=== PATIENT | male | born 1965 | race Hispanic/Latino ===

== ENCOUNTER 2018-03-19 19:37 | Emergency (ER) | payer OTHER ==
[2018-03-19 20:01] VITALS: BMI 49.5
[2018-03-19 20:11] VITALS: TEMP 98.3
--- NOTE | 2018-03-19 20:53 | ED PDOC ---
Arrival/HPI - General Chief Complaint: Abdominal Pain Time Seen by Provider: 03/19/18 20:02 Historian: Patient - History of Present Illness Narrative History of Present Illness (Text): 03/19/18 20:50 Edinson Herrera is a 53 year old male, whose past medical history includes gastric bypass in 2000, GERD, BPH, and kidney stents, who presents to the Emergency department complaining of abdominal pain. Patient states he has been e xperiencing upper abdominal discomfort for the past 5 days. Patient notes he had eaten a snack cake and drank Gatorade when symptoms began. Patient denies any fever, chills, chest pain, shortness of breath, nausea, vomiting, headache, dizziness, or any other complaints. Symptom Onset: Gradual Symptom Course: Unchanged Activities at Onset: Light Context: Home Past Medical History - Provider Review Nursing Documentation Reviewed: Yes - Cardiac Hx Cardiac Disorders: No - Pulmonary Hx Respiratory Disorders: No - Neurological Hx Neurological Disorder: No - HEENT Hx HEENT Disorder: No - Renal Hx Renal Disorder: No - Endocrine/Metabolic Hx Endocrine Disorders: No - Hematological/Oncological Hx Blood Disorders: No - Integumentary Hx Dermatological Disorder: No - Musculoskeletal/Rheumatological Hx Musculoskeletal Disorders: No - Gastrointestinal Hx Gastrointestinal Disorders: Yes Hx Gastroesophageal Reflux: Yes - Genitourinary/Gynecological Hx Genitourinary Disorders: No - Psychiatric Hx Psychophysiologic Disorder: No Hx Substance Use: No - Surgical History Hx Gastric Bypass Surgery: Yes (2000) Other/Comment: right ankle surgery 1999. 2 kidney stents - Anesthesia Hx Anesthesia: Yes Hx Anesthesia Reactions: No Hx Malignant Hyperthermia: No Family/Social History - Physician Review Nursing Documentation Reviewed: Yes Family/Social History: Unknown Family HX Smoking Status: Never Smoked Hx Alcohol Use: Yes Frequency of alcohol use: Daily Hx Substance Use: No Allergies/Home Meds Allergies/Adverse Reactions: Allergies acetaminophen [From Percocet] Allergy (Verified 03/19/18 20:02) RASH oxycodone [From Percocet] Allergy (Verified 03/19/18 20:02) RASH Home Medications: Home Meds Medication Instructions Recorded Confirmed Alfuzosin HCl [Alfuzosin HCl ER] 10 mg PO DAILY 03/19/18 03/19/18 Cholecalciferol (Vitamin D3) 5,000 iu PO DAILY 03/19/18 03/19/18 [Vitamin D3] Omeprazole 40 mg PO DAILY 03/19/18 03/19/18 Review of Systems - Physician Review All systems were reviewed & negative as marked: Yes - Review of Systems Constitutional: Normal. absent: Fevers Eyes: Normal ENT: Normal Respiratory: Normal Gastrointestinal: Abdominal Pain. absent: Diarrhea, Vomiting Genitourinary Male: Normal. absent: Dysuria, Frequency, Hematuria, Urinary Output Changes Musculoskeletal: Normal. absent: Back Pain, Neck Pain Skin: Normal. absent: Rash Neurological: Normal. absent: Headache, Dizziness Endocrine: Normal Hemo/Lymphatic: Normal Psychiatric: Normal Physical Exam Vital Signs Reviewed: Yes Vital Signs Temp Pulse Resp Pulse Ox 03/19/18 20:09 98.3 F 76 16 96 Temperature: Afebrile Blood Pressure: Normal Pulse: Regular Respiratory Rate: Normal Appearance: Positive for: Well-Appearing, Non-Toxic, Comfortable Pain Distress: None Mental Status: Positive for: Alert and Oriented X 3 - Systems Exam Head: Present: Atraumatic, Normocephalic Pupils: Present: PERRL Extroacular Muscles: Present: EOMI Conjunctiva: Present: Normal Mouth: Present: Moist Mucous Membranes Neck: Present: Normal Range of Motion Respiratory/Chest: Present: Clear to Auscultation, Good Air Exchange. No: Respiratory Distress, Accessory Muscle Use Cardiovascular: Present: Regular Rate and Rhythm, Normal S1, S2. No: Murmurs Abdomen: Present: Tenderness (right upper abdomen). No: Distention, Peritoneal Signs Back: Present: Normal Inspection Upper Extremity: Present: Normal Inspection. No: Cyanosis, Edema Lower Extremity: Present: Normal Inspection. No: Edema Neurological: Present: GCS=15, CN II-XII Intact, Speech Normal Skin: Present: Warm, Dry, Normal Color. No: Rashes Psychiatric: Present: Alert, Oriented x 3, Normal Insight, Normal Concentration Medical Decision Making ED Course and Treatment: 03/19/18 20:50 Impression: 53 year old male complaining of upper abdominal discomfort x 5 days. Plan: -- CT Abdomen and Pelvis with IV contrast -- EKG -- CXR -- Labs, cardiac enzymes, lipase -- IV fluids -- Protonix -- Toradol -- Reassess and disposition Progress Notes: Reviewed EKG, NSR at [address]-segment elevations or depressions, no T-wave inversions, normal intervals. 03/20/18 00:49 Chest X-ray reviewed, shows no acute processes. 03/20/18 01:09 CT Abdomen and Pelvis reviewed, shows: Chest: The visualized lung bases are clear. There is a small hiatal hernia. Gastric bypass surgical changes are noted. Abdomen: The liver, spleen, pancreas, and adrenal glands are unremarkable. There is severe left-sidedhydronephrosis and hydroureter. There is narrowing of the caliber of the distal ureter. Dense material is seen in the urinary bladder adjacent to the left ureterovesical junction. The gallbladder is distended. A 2.4 cm gallstone is seen in the fundus of the gallbladder. There is no evidence of biliary ductal dilatation. The aorta is within normal limits. There is no evidence of abdominal lymphadenopathy or ascites. There is a small periumbilical hernia containing only omental fat. Pelvis: The bowel is unremarkable, with no obstructive or inflammatory changes. The urinary bladder is within normal limits. The other pelvic structures appear grossly intact. There is no evidence of pelvic lymphadenopathy or ascites. Bones: There are no suspicious osseous abnormalities seen. Impression: 1. Severe left-sided hydronephrosis and hydroureter. There is narrowing of the distal left ureter, but no discrete mass or stone is seen at this time. Linear density material is seen in the urinary bladder adjacent to the ureterovesical junction. This is nonspecific. Ultrasound of the kidneys and urinary bladder may be helpful for further evaluation. The right renal collecting system is unremarkable. 2. Cholelithiasis with distended gallbladder. No evidence of biliary ductal dilatation or pericholecystic free fluid. If there is further clinical concern, ultrasound could be performed. 3. No obstructive or inflammatory bowel changes. 4. Small hiatal hernia. 03/20/18 01:14 The patient declines to have further medical evaluation and treatment and wishes to leave the Emergency Department. This action is against my medical advice to the patient, and with informed refusal. The patient was told that evaluation and treatment are necessary and a full explanation of the rationale was given. The risks of leaving were explained to the patient and include, but are not limited to, worsening of known or currently unknown conditions, permanent disability and from undiagnosed or untreated conditions The patient has the capacity to make this informed decision and understands the clinical situation and my explanation of the risks of leaving. The patient voluntarily accepts these risks, and a signed AMA form documenting our conversation was obtained. The patient was given the opportunity to ask questions and reconsider. The patient was encouraged to return to the Emergency Department at any time for further care. - Lab Interpretations I have reviewed the lab results: Yes - RAD Interpretation [employer] Cook: ED Physician - EKG Interpretation Interpreted by ED Physician: Yes Type: 12 lead EKG - Scribe Statement The provider has reviewed the documentation as recorded by the Samraibyrn Neal Provider Scribe Attestation: All medical record entries made by the Scribe were at my direction and personally dictated by me. I have reviewed the chart and agree that the record accurately reflects my personal performance of the history, physical exam, medical decision making, and the department course for this patient. I have also personally directed, reviewed, and agree with the discharge instructions and disposition. Disposition/Present on Arrival - Present on Arrival Any Indicators Present on Arrival: No History of DVT/PE: No History of Uncontrolled Diabetes: No Urinary Catheter: No History of Decub. Ulcer: No History Surgical Site Infection Following: None - Disposition Have Diagnosis and Disposition been Completed?: Yes Diagnosis: Biliary colic, Cholelithiasis, Elevated transaminase level Disposition: AGAINST MEDICAL ADVICE Disposition Time: 01:50 Condition: STABLE Referrals: PCP,NO [Primary Care Provider] - Follow up with primary Forms: [employer] Feed (Guamanian)
[2018-03-19] MEDS ORDERED: Sodium Chloride 0.9% 1,000 ML IV STA (20:56)
[2018-03-19 22:04] VITALS: BP 113/71; PULSE 78; RESP 17; O2SAT 97
[2018-03-19 22:09] LABS: HEMOGLOBIN 13.8 g/dL (14.0-18.0); MEAN CELL VOLUME 96.4 fl (80.0-105.0); MEAN CORPUSCULAR HEMOGLOBIN 30.9 pg (25.0-35.0); MEAN CORPUSCULAR HGB CONC 32.1 g/dl (31.0-37.0); MEAN PLATELET VOLUME 8.6 fl (7.0-11.0); RBC 4.46 10^6/uL (3.5-6.1); RED CELL DISTRIBUTION WIDTH 16.8 % (11.5-14.5); WHITE BLOOD COUNT 6.2 10^3/uL (4.5-11.0)
[2018-03-19 22:12] LABS: ALB/GLOB RATIO 0.9 (1.1-1.8); ALBUMIN 3.9 g/dL (3.0-4.8); ALT/SGPT 123 U/L (7-56); AST/SGOT 149 U/L (17-59); BLOOD UREA NITROGEN 9 mg/dL (7-21); CALCIUM 9.3 mg/dL (8.4-10.5); GFR NON-AFRICAN AMERICAN > 60; LIPASE 120 U/L (23-300)
[2018-03-19 22:23] LABS: TROPONIN I < 0.01 ng/mL
[2018-03-19] MEDS ORDERED: Iohexol 350 MG/100 ML VIAL ONE (23:04)
--- NOTE | 2018-03-20 05:53 | RAD ---
Date of service: 03/19/2018 HISTORY: abdominal pain COMPARISON: No prior. FINDINGS: LUNGS: The lungs are well inflated and clear. PLEURA: No pleural effusions or pneumothorax. CARDIOVASCULAR: The heart is normal in size. No aortic atherosclerotic calcification present. OSSEOUS STRUCTURES: Within normal limits for the patient's age. VISUALIZED UPPER ABDOMEN: Normal. OTHER FINDINGS: None. IMPRESSION: No active pulmonary disease.
--- NOTE | 2018-03-20 09:07 | CT ---
Date of service: 03/19/2018 PROCEDURE: CT Abdomen and Pelvis with contrast HISTORY: Abdominal pain COMPARISON: None. TECHNIQUE: CT scan of the abdomen and pelvis was performed after administration of intravenous contrast. Oral contrast was not administered. Coronal and sagittal reformatted images were obtained. Contrast dose: 100 mL Omnipaque 350 Radiation dose: Total exam DLP = 1735.45 mGy-cm. This CT exam was performed using one or more of the following dose reduction techniques: Automated exposure control, adjustment of the mA and/or kV according to patient size, and/or use of iterative reconstruction technique. FINDINGS: LOWER THORAX: There is dependent atelectasis in the lung bases. LIVER: Enlarged with homogeneous enhancement. There is mild periportal edema. No gross lesion or ductal dilatation. GALLBLADDER AND BILE DUCTS: The gallbladder is distended. There are multiple gallstones in the fundus. No wall thickening or pericholecystic fluid. PANCREAS: Normal in size with homogeneous enhancement. No gross lesion or ductal dilatation. SPLEEN: Mild splenomegaly. Normal enhancement. ADRENALS: No discrete nodule. KIDNEYS AND URETERS: The right kidney is normal in size with homogeneous enhancement. There is mild fullness in the right collecting system, an extrarenal pelvis and mild dilatation of the proximal ureteral. There is mild enlargement of the left kidney, severe left hydronephrosis, severe diffuse dilatation of the left ureteral with segmental narrowing of the distal ureter. VASCULATURE: No aortic aneurysm. BOWEL: Unremarkable. No obstruction. No gross mural thickening. APPENDIX: Normal appendix. PERITONEUM: Unremarkable. No free fluid. No free air. LYMPH NODES: Unremarkable. No enlarged lymph nodes. BLADDER: Partially distended. There is moderate circumferential mural thickening of the urinary bladder wall. REPRODUCTIVE: Unremarkable. BONES: No acute fracture. Within normal limits for the patient's age. OTHER FINDINGS: None. IMPRESSION: 1. Severe left hydroureteronephrosis with segmental narrowing of the left distal ureter suspicious for a stricture. 2. Mild hepatosplenomegaly. Mild periportal edema is nonspecific. 3. Distended gallbladder and cholelithiasis. 4. Apparent moderate mural thickening of the urinary bladder wall is nonspecific and could be related to underdistention however cystitis cannot be excluded.
--- NOTE | 2018-03-20 10:38 | CARD ---
APPROVED REPORT Date of service: 03/19/2018 EKG Measurement Heart [id number] ME [id number] [id number] <Conclusion> Normal sinus rhythm Normal ECG
== END 2018-03-20 01:41 | disposition left against medical advice (07) ==
LOC: ED 19:37
DX: K80.70 Calculus of gallbladder and bile duct without cholecystitis without obstruction (principal); R74.0 Nonspecific elevation of levels of transaminase and lactic acid dehydrogenase [LDH]; K21.9 Gastro-esophageal reflux disease without esophagitis; N40.0 Benign prostatic hyperplasia without lower urinary tract symptoms; Z98.84 Bariatric surgery status
CPT/HCPCS: 71045; 74177; 80053; 82550; 83615; 83690; 84484; 85027; 93005; 96361; 96374; 96375; 99283; C9113; J1885; J7030; Q9967

== ENCOUNTER 2018-03-21 17:00 | Inpatient (IN) | payer OTHER ==
[2018-03-21 17:01] VITALS: BMI 49.5
[2018-03-21 18:35] LABS: BASO # 0.02 K/mm3 (0.0-2.0); BASO % 0.5 % (0.0-3.0); EOS # 0.3 (0.0-0.7); EOS % 5.9 % (1.5-5.0); GRAN # 2.79 (1.4-6.5); GRAN % 63.1 % (50.0-68.0); HEMOGLOBIN 13.2 g/dL (14.0-18.0); LYMPH # 0.9 (1.2-3.4); MEAN CELL VOLUME 95.6 fl (80.0-105.0); MEAN CORPUSCULAR HEMOGLOBIN 30.6 pg (25.0-35.0); MEAN PLATELET VOLUME 8.6 fl (7.0-11.0); MONO # 0.4 (0.1-0.6); MONO % 9.5 % (1.0-6.0); RBC 4.32 10^6/uL (3.5-6.1); RED CELL DISTRIBUTION WIDTH 16.5 % (11.5-14.5); WHITE BLOOD COUNT 4.4 10^3/uL (4.5-11.0)
--- NOTE | 2018-03-21 18:38 | ED PDOC ---
Arrival/HPI - History of Present Illness Narrative History of Present Illness (Text): 03/21/18 18:34 Edinson Herrera is a 53 year old morbidly obese male, whose past medical history includes gastric bypass in 2000, GERD, BPH, and kidney stents, who presents to the Emergency department complaining of abdominal pain. Patient states he has been experiencing upper abdominal discomfort for the past 7 days. Pt was seen here on 03/19 for the same complaint, found to have cholelithiasis with elevated LFTs but signed out AMA and denied admission. Pt is here today at the advisement of his family for continued RUQ discomfort, although pain is better. Denies fever, chills, chest pain, shortness of breath, nausea, vomiting, headache, dizziness, urinary symptoms. <Emely Chen - Last Filed: 03/22/18 03:03> <Sujata Muse - Last Filed: 03/24/18 07:32> - General Chief Complaint: GI Problem Time Seen by Provider: 03/21/18 17:10 Past Medical History - Provider Review Nursing Documentation Reviewed: Yes - Cardiac Hx Cardiac Disorders: No - Pulmonary Hx Respiratory Disorders: No - Neurological Hx Neurological Disorder: No - HEENT Hx HEENT Disorder: No - Renal Hx Renal Disorder: No - Endocrine/Metabolic Hx Endocrine Disorders: No - Hematological/Oncological Hx Blood Disorders: No - Integumentary Hx Dermatological Disorder: No - Musculoskeletal/Rheumatological Hx Musculoskeletal Disorders: No - Gastrointestinal Hx Gastrointestinal Disorders: Yes Hx Gastroesophageal Reflux: Yes - Genitourinary/Gynecological Hx Genitourinary Disorders: No - Psychiatric Hx Psychophysiologic Disorder: No Hx Substance Use: No - Surgical History Hx Gastric Bypass Surgery: Yes (2000) Other/Comment: right ankle surgery 1999. 2 kidney stents - Anesthesia Hx Anesthesia: Yes Hx Anesthesia Reactions: No Hx Malignant Hyperthermia: No <Emely Chen - Last Filed: 03/22/18 03:03> Family/Social History - Physician Review Nursing Documentation Reviewed: Yes Family/Social History: No Known Family HX Smoking Status: Never Smoked Hx Alcohol Use: Yes Hx Substance Use: No <Emely Chen - Last Filed: 03/22/18 03:03> Allergies/Home Meds <Emely Chen - Last Filed: 03/22/18 03:03> <Sujata Muse - Last Filed: 03/24/18 07:32> Allergies/Adverse Reactions: Allergies acetaminophen [From Percocet] Allergy (Verified 03/21/18 17:09) RASH oxycodone [From Percocet] Allergy (Verified 03/21/18 17:09) RASH Home Medications: Home Meds Medication Instructions Recorded Confirmed RX: Alfuzosin HCl [Alfuzosin HCl 10 mg PO DAILY 03/19/18 03/21/18 ER] RX: Cholecalciferol (Vitamin D3) 5,000 iu PO DAILY 03/19/18 03/21/18 [Vitamin D3] RX: Omeprazole 40 mg PO DAILY 03/19/18 03/21/18 Review of Systems - Physician Review All systems were reviewed & negative as marked: Yes - Review of Systems Constitutional: Normal. absent: Fevers Eyes: Normal. absent: Vision Changes ENT: Normal Respiratory: Normal. absent: SOB, Cough Cardiovascular: Normal. absent: Chest Pain, Syncope Gastrointestinal: Abdominal Pain (RUQ). absent: Stool Changes, Nausea, Vomiting, Appetite Changes Genitourinary Male: Normal. absent: Dysuria, Frequency Musculoskeletal: Normal. absent: Back Pain, Neck Pain Skin: Normal. absent: Rash, Cellulitis Neurological: Normal. absent: Headache, Dizziness Endocrine: Normal Hemo/Lymphatic: Normal Psychiatric: Normal <Emely Chen - Last Filed: 03/22/18 03:03> Physical Exam Vital Signs Temp Pulse Resp BP Pulse Ox 03/21/18 17:07 98.7 F 80 18 137/87 99 Temperature: Afebrile Blood Pressure: Normal Pulse: Regular Respiratory Rate: Normal Appearance: Positive for: Well-Appearing, Non-Toxic, Comfortable Pain Distress: None Mental Status: Positive for: Alert and Oriented X 3 - Systems Exam Head: Present: Atraumatic, Normocephalic Pupils: Present: PERRL Extroacular Muscles: Present: EOMI Conjunctiva: Present: Normal Mouth: Present: Moist Mucous Membranes Neck: Present: Normal Range of Motion Respiratory/Chest: Present: Clear to Auscultation, Good Air Exchange. No: Respiratory Distress, Accessory Muscle Use Cardiovascular: Present: Regular Rate and Rhythm, Normal S1, S2. No: Murmurs Abdomen: No: Tenderness, Distention, Peritoneal Signs Back: Present: Normal Inspection Upper Extremity: Present: Normal Inspection. No: Cyanosis, Edema Lower Extremity: Present: Normal Inspection. No: Edema Neurological: Present: GCS=15, CN II-XII Intact, Speech Normal Skin: Present: Warm, Dry, Normal Color. No: Rashes Psychiatric: Present: Alert, Oriented x 3, Normal Insight, Normal Concentration <Emely Chen - Last Filed: 03/22/18 03:03> Vital Signs Temp Pulse Resp BP Pulse Ox 03/22/18 00:10 98.6 F 88 17 165/88 H 96 03/22/18 00:00 98.3 F 84 20 119/78 97 03/21/18 21:06 88 16 137/63 97 03/21/18 17:07 98.7 F 80 18 137/87 99 <Sujata Muse - Last Filed: 03/24/18 07:32> Medical Decision Making ED Course and Treatment: 03/22/18 17:15 Initial Plan: * CBC, CMP, Lipase * Gallbladder US * IVF * Consult surgery Pt offered pain medication, he refuses, states pain is not severe. 22:10 Gallbladder US significant for cholelithiasis 22:15 Spoke with surgery who states patient should be admitted to medicine secondary to elevated LFTs. Will call medicine. 22:[address] Hannah who accepts patient for inpatient admission to med-surg with surgery consult for symptomatic cholethiasis with elevated LFTs. Plan of care discussed with pt who agrees and understands. - Lab Interpretations Narrative Lab Interpretation (Text): 03/22/18 03:18 03/21/18 03/21/18 03/21/18 18:00 18:00 18:00 WBC 4.4 L D RBC 4.32 Hgb 13.2 L Hct 41.3 L MCV 95.6 MCH 30.6 MCHC 32.0 RDW 16.5 H Plt Count 279 MPV 8.6 Gran % 63.1 Lymph % (Auto) 21.0 L Pender % (Auto) 9.5 H Eos % (Auto) 5.9 H Baso % (Auto) 0.5 Gran # 2.79 Lymph # (Auto) 0.9 L Pender # (Auto) 0.4 Eos # (Auto) 0.3 Baso # (Auto) 0.02 PT 11.8 INR 1.03 APTT 33.9 Sodium 141 Potassium 4.0 Chloride 107 Carbon Dioxide 25 Anion Gap 14 BUN 5 L Creatinine 0.8 Est GFR ( Amer) > 60 Est GFR (Non-Af Amer) > 60 Random Glucose 92 Calcium 8.9 Total Bilirubin 2.3 H AST 175 H ALT 126 H Alkaline Phosphatase 330 H Troponin I < 0.01 Total Protein 7.8 Albumin 3.7 Globulin 4.1 Albumin/Globulin Ratio 0.9 L Lipase 147 I have reviewed the lab results: Yes - RAD Interpretation Narrative RAD Interpretations (Text): 03/21/18 22:24 Gallbladder US History RUQ pain. Comparison None. Technique Sonographic evaluation of the right upper quadrant of the abdomen. Findings Liver Measures 19.8 cm in length. Normal echogenicity of the liver parenchyma. No mass. No intrahepatic bile duct dilatation. Gallbladder The gallbladder stones are seen. The gallbladder wall is not thickened measuring 0.22 cm and there is no pericholecystic fluid. Negative sonographic Castaneda's si gn. There is no abdominal ascites. Common bile duct Measures 7.7 mm. No stones. No dilatation. Pancreas Unremarkable as visualized. No mass. No ductal dilatation. Right kidney Measures 12.8 x 5.5 x 7.2 cm in length. Mild hydronephrosis. Normal echogenicity. No calculus or mass. Aorta Not visualized due to excessive bowl gas. IVC Unremarkable. Impression 1. Cholelithiasis. 2. No acute pathology. Electronically signed on Mar 21, 2018 10:06:04 PM EDT by: Brian Fernández M.D., RAMIREZ Certified By [facility] & [facility] Fellowship Trained MRI and CT Specialist 03/22/18 03:19 Radiology Orders: 03/21/18 17:13 GALLBLADDER & COMMON DUCT [US] Stat [employer] Back Feeder: Radiologist <Emely Chen - Last Filed: 03/22/18 03:03> - Lab Interpretations Lab Results: 03/21/18 18:00 03/21/18 18:00 Lab Results 03/21/18 18:00: PT 11.8, INR 1.03, APTT 33.9 03/21/18 18:00: Sodium 141, Potassium 4.0, Chloride 107, Carbon Dioxide 25, Anion Gap 14, BUN 5 L, Creatinine 0.8, Est GFR ( Amer) > 60, Est GFR (Non-Af Amer) > 60, Random Glucose 92, Calcium 8.9, Total Bilirubin 2.3 H, AST 175 H, ALT 126 H, Alkaline Phosphatase 330 H, Troponin I < 0.01, Total Protein 7.8, Albumin 3.7, Globulin 4.1, Albumin/Globulin Ratio 0.9 L, Lipase 147 03/21/18 18:00: WBC 4.4 L D, RBC 4.32, Hgb 13.2 L, Hct 41.3 L, MCV 95.6, MCH 30.6, MCHC 32.0, RDW 16.5 H, Plt Count 279, MPV 8.6, Gran % 63.1, Lymph % (Auto) 21.0 L, Pender % (Auto) 9.5 H, Eos % (Auto) 5.9 H, Baso % (Auto) 0.5, Gran # 2.79, Lymph # (Auto) 0.9 L, Pender # (Auto) 0.4, Eos # (Auto) 0.3, Baso # (Auto) 0.02 - RAD Interpretation Radiology Orders: 03/21/18 17:13 GALLBLADDER & COMMON DUCT [US] Stat - Medication Orders Current Medication Orders: Folic Acid (Folic Acid) 1 mg PO DAILY [facility] Last Admin: 03/23/18 11:10 Dose: 1 mg Lactated Ringer's (Lactated Ringer's) 1,000 mls @ 150 mls/hr IV .Q6H40M KAREN Last Admin: 03/24/18 02:59 Dose: Not Given Non-Admin Reason: bag running Ceftriaxone Sodium (Rocephin 1 Gram Ivpb) 1 gm in 100 mls @ 100 mls/hr IVPB DAILY [facility]; Protocol Ketorolac Tromethamine (Toradol) 30 mg IVP Q6 PRN PRN Reason: Pain, severe (8-10) Last Admin: 03/23/18 22:13 Dose: 30 mg MAR Pain Assessment Document 03/23/18 22:13 BN (Rec: 03/23/18 22:13 BN [facility] [id number] Pain Reassessment Is this a pain reassessment? No Sleep Is patient sleeping during reassessment? No Presence of Pain Presence of Pain Yes Pain Scale Used Protocol: PSCALES Pain Scale Used Numeric Location Pain Location Body Site Abdomen Description Description Intermittent Intensity of Pain at present 6 Pain Behavior Restlessness IVP Administration Document 03/23/18 22:13 BN (Rec: 03/23/18 22:13 BN [facility] [id number]) Charges for Administration # of IVP Administrations 1 Re-Assess: MAR Pain Assessment Document 03/23/18 23:13 BN (Rec: 03/24/18 02:59 BN [id number]) Pain Reassessment Is this a pain reassessment? Yes Sleep Is patient sleeping during reassessment? Yes Lorazepam (Ativan) 1 mg IVP Q6H PRN; Protocol PRN Reason: Seizure activity Multivitamins/Minerals (Therapeutic-M Tab) 1 tab PO 0800 [facility] Last Admin: 03/23/18 11:10 Dose: 1 tab Ondansetron HCl (Zofran Inj) 4 mg IVP Q6H PRN PRN Reason: Nausea/Vomiting Pantoprazole Sodium (Protonix Ec Tab) 40 mg PO 0600 [facility] Last Admin: 03/24/18 05:51 Dose: 40 mg Tamsulosin HCl (Flomax) 0.4 mg PO DAILY KAREN Thiamine HCl (Vitamin B1 Tab) 50 mg PO DAILY [facility] Last Admin: 03/23/18 12:10 Dose: 50 mg Discontinued Medications Diphenhydramine HCl (Benadryl) 25 mg IVP STAT STA Stop: 03/22/18 01:33 Last Admin: 03/22/18 02:06 Dose: 25 mg IVP Administration Document 03/22/18 02:06 [facility] (Rec: 03/22/18 02:06 [facility] [employer]) Charges for Administration # of IVP Administrations 1 Multivitamins/Vitamin C 10 ml/Thiamine HCl 100 mg/ Folic Acid 1 mg/ Sodium Chloride 1,011.2 mls @ 100 mls/hr IV .Q10H7M ONE Stop: 03/22/18 09:56 Last Admin: 03/22/18 02:53 Dose: 100 mls/hr eMAR Start Stop Document 03/22/18 02:53 [facility] (Rec: 03/22/18 02:53 [facility] [employer]) Intravenous Solution Start Date 03/22/18 Start Time 02:53 Lorazepam (Ativan) 1 mg IVP Q6H PRN; Protocol PRN Reason: Agitation <Sujata Muse - Last Filed: 03/24/18 07:32> - PA / SAW BOSS / Resident Statement MD/DO has reviewed & agrees with the documentation as recorded. <Sujata Muse - Last Filed: 03/24/18 07:32> Disposition/Present on Arrival - Present on Arrival Any Indicators Present on Arrival: No History of DVT/PE: No History of Uncontrolled Diabetes: No Urinary Catheter: No History of Decub. Ulcer: No History Surgical Site Infection Following: None - Disposition Have Diagnosis and Disposition been Completed?: Yes Disposition Time: 22:00 Patient Plan: Admission <Emely Chen - Last Filed: 03/22/18 03:03> <Sujata Muse - Last Filed: 03/24/18 07:32> - Disposition Diagnosis: Cholelithiasis, Elevated LFTs Disposition: HOSPITALIZED Patient Problems: Current Active Problems Problem Status Onset Cholelithiasis Acute Dilated bile duct Acute Elevated LFTs Acute Total bilirubin, elevated Acute Condition: STABLE
[2018-03-21 18:40] LABS: INR 1.03; PARTIAL THROMBOPLASTIN TIME 33.9 Seconds (25.1-36.5); PROTHROMBIN TIME 11.8 SECONDS (9.4-12.5)
[2018-03-21 18:50] LABS: ALB/GLOB RATIO 0.9 (1.1-1.8); ALBUMIN 3.7 g/dL (3.0-4.8); ALT/SGPT 126 U/L (7-56); AST/SGOT 175 U/L (17-59); BLOOD UREA NITROGEN 5 mg/dL (7-21); CALCIUM 8.9 mg/dL (8.4-10.5); GFR NON-AFRICAN AMERICAN > 60; LIPASE 147 U/L (23-300)
[2018-03-21 18:54] LABS: TROPONIN I < 0.01 ng/mL
--- NOTE | 2018-03-21 22:54 | CP.PCM.CON ---
History of Present Illness - History of Present Illness History of Present Illness: Surgery: Reason for consult: cholelithiasis CC: RUQ abdominal pain HPI: Patient is a 53 y/o male w/ pmhx of morbid obesity s/p gastric bypass surgery in 2000 w/ approximately 300lb weight loss since presents complaining of acute onset RUQ abdominal pain that started a couple of days ago. He states the pain was sharp in nature and localized to the RUQ. The pain started after eating a snack cake. He reports associated "gas discomfort" in which he tried to self induce vomiting to relieve the symptoms. He denies having similar pain in the past. He denies f/c chest pain or shortness of breath. He reports normal bowel function and flatus. He denies having EGD or colonoscopy in the past. He does report chronic reflux type symptoms however well controlled on OTC medication. Since the onset of pain, he reports brief resolution of symptoms. He does state he was seen in the ER two days ago for the pain and was told his liver enzymes were elevated and recommended admission for further evaluation however patient had social obligations and he left against medical advice. PMH: morbid obesity, HTN and DM-resolved since gastric bypass surgery, gastritis, cholelithiasis, BPH, nephrolithiasis PSH: gastric bypass 2000, surgeon name unknown. cystoscopy w/ ureteral stent placement Social: denies drug or ETOH abuse Review of Systems - Review of Systems All systems: reviewed and no additional remarkable complaints except Review of Systems: unless stated in HPI - Constitutional Constitutional: absent: Anorexia, Chills, Fever - EENT Eyes: absent: Blurred Vision, Change in Vision Ears: absent: Disequilibrium, Dizziness Nose/Mouth/Throat: absent: Nasal Congestion, Dysphagia, Hoarsness - Cardiovascular Cardiovascular: absent: Chest Pain, Dyspnea - Respiratory Respiratory: absent: Cough, Wheezing - Gastrointestinal Gastrointestinal: Abdominal Pain, Belching, Dyspepsia, Nausea. absent: Bloating, Change in Bowel Habits, Constipation, Cramping, Diarrhea, Hematochezia, Melena, Vomiting - Genitourinary Genitourinary: absent: Hematuria, Pyuria - Musculoskeletal Musculoskeletal: absent: Back Pain, Muscle Cramps - Integumentary Integumentary: absent: Skin Pain, Wounds - Neurological Neurological: absent: Dizziness, Numbness - Psychiatric Psychiatric: absent: Anxiety, Depression - Endocrine Endocrine: absent: Polydipsia, Polyphagia - Hematologic/Lymphatic Hematologic: absent: Easy Bleeding, Easy Bruising Past Patient History - Past Social History Smoking Status: Never Smoked - CARDIAC Hx Cardiac Disorders: No - PULMONARY Hx Respiratory Disorders: No - NEUROLOGICAL Hx Neurological Disorder: No - HEENT Hx HEENT Problems: No - RENAL Hx Chronic Kidney Disease: No - ENDOCRINE/METABOLIC Hx Endocrine Disorders: No - HEMATOLOGICAL/ONCOLOGICAL Hx Blood Disorders: No - INTEGUMENTARY Hx Dermatological Problems: No - MUSCULOSKELETAL/RHEUMATOLOGICAL Hx Musculoskeletal Disorders: No - GASTROINTESTINAL Hx Gastrointestinal Disorders: Yes Hx Gastroesophageal Reflux: Yes - GENITOURINARY/GYNECOLOGICAL Hx Genitourinary Disorders: No - PSYCHIATRIC Hx Psychophysiologic Disorder: No Hx Substance Use: No - SURGICAL HISTORY Hx Gastric Bypass Surgery: Yes (2000) Other/Comment: right ankle surgery 1999. 2 kidney stents - ANESTHESIA Hx Anesthesia: Yes Hx Anesthesia Reactions: No Hx Malignant Hyperthermia: No Meds Allergies/Adverse Reactions: Allergies Allergy/AdvReac Type Severity Reaction Status Date / Time acetaminophen [From Percocet] Allergy RASH Verified 03/21/18 17:09 oxycodone [From Percocet] Allergy RASH Verified 03/21/18 17:09 Physical Exam - Constitutional Appears: Non-toxic, No Acute Distress - Head Exam Head Exam: ATRAUMATIC, NORMOCEPHALIC - Eye Exam Eye Exam: EOMI, Normal appearance - ENT Exam ENT Exam: Mucous Membranes Moist - Respiratory Exam Respiratory Exam: NORMAL BREATHING PATTERN. absent: Respiratory Distress - Cardiovascular Exam Cardiovascular Exam: REGULAR RHYTHM. absent: Tachycardia - GI/Abdominal Exam GI & Abdominal Exam: Soft. absent: Distended, Guarding, Rebound, Rigid, Tenderness Additional comments: midline incision well healed, abdominal striae - Rectal Exam Rectal Exam: Deferred - Extremities Exam Extremities exam: Positive for: normal inspection. Negative for: calf tenderness - Neurological Exam Neurological exam: Alert, Oriented x3 - Psychiatric Exam Psychiatric exam: Normal Affect, Normal Mood - Skin Skin Exam: Dry, Normal Color, Warm Results - Vital Signs Recent Vital Signs: Last Vital Signs Temp 98.7 F 03/21/18 17:07 Pulse 88 03/21/18 21:06 Resp 16 03/21/18 21:06 BP 137/63 03/21/18 21:06 Pulse Ox 97 03/21/18 21:06 - Labs Result Diagrams: 03/21/18 18:00 03/21/18 18:00 Labs: Laboratory Results - last 24 hr 03/21/18 03/21/18 03/21/18 18:00 18:00 18:00 WBC 4.4 L D RBC 4.32 Hgb 13.2 L Hct 41.3 L MCV 95.6 MCH 30.6 MCHC 32.0 RDW 16.5 H Plt Count 279 MPV 8.6 Gran % 63.1 Lymph % (Auto) 21.0 L [place] % (Auto) 9.5 H Eos % (Auto) 5.9 H Baso % (Auto) 0.5 Gran # 2.79 Lymph # (Auto) 0.9 L [place] # (Auto) 0.4 Eos # (Auto) 0.3 Baso # (Auto) 0.02 PT 11.8 INR 1.03 APTT 33.9 Sodium 141 Potassium 4.0 Chloride 107 Carbon Dioxide 25 Anion Gap 14 BUN 5 L Creatinine 0.8 Est GFR ( Amer) > 60 Est GFR (Non-Af Amer) > 60 Random Glucose 92 Calcium 8.9 Total Bilirubin 2.3 H AST 175 H ALT 126 H Alkaline Phosphatase 330 H Troponin I < 0.01 Total Protein 7.8 Albumin 3.7 Globulin 4.1 Albumin/Globulin Ratio 0.9 L Lipase 147 - Impressions Impression: u/s: GB wall 2.2mm, no edema, +gallstones, CBD 7.7mm Assessment & Plan - Assessment and Plan (Free Text) Assessment: 53 y/o male w/ transaminitis, hyperbilirubenemia, and cholelithiasis r/o jeremias docholithiasis Plan: -recommend MRCP -needs GI consult, may need ERCP however patient has history of gastric bypass -repeat labs in am -ok for sips of water tonight, NPO pmn -IVF -pain control -zofran -SCDs -further recs per attending AKWhite PGY4
--- NOTE | 2018-03-21 23:07 | CP.PCM.HP ---
Addendum entered and electronically signed by Roxie SheetsJen, DO 03/23/18 15:41: Patient's outpatient urologist, Dr Kamlesh Ulrich Patient experienced weak stream and hesitancy during urination at the beginning of this year. Pt endorsed that he had BPH which caused urine backup that affected his kidneys. One of his ureters was looped at . Ureteral stents (1 on each side) and a bladder stent were placed in Jun 2017. He underwent surgery to create a path in the prostate to urinate. Then the stents were removed around July 2017. Recently, patient has been noticing the return of weak stream and hesitency. No hematuria, dysuria, or suprapubic pain Original Note: History of Present Illness - History of Present Illness History of Present Illness: Joshua Mendez, PGY1 Hospital H&P This is a pleasant 53M with PMH of GERD, BPH, kidney stents in 2018, gastric bypass in 2000, morbid obesity and alcohol abuse presenting to the ED for 1 week history of abdominal pain. Pain is located in the B/L lower abdomen, gradual in onset, rated 8/10 at worse, dull, constant, radiating to the right RUQ and patient denies any associated symptoms. He was seen on 03/19 and imaging at that time revealed cholelithiasis, but patient left AMA. Today, patient states his si ster advised him to return to the hospital. He states his pain today has improved last week. His last drink was last night at 11pm and denies any history of alcohol withdrawal/seizures. He admits to mild RUQ pain and denies CP, SOB, headaches, fevers, chills, nausea, vomiting, back pain, diarrhea, constipation, melena, urinary complaints, numbness, tingling, swelling, recent travel/trauma/sick contacts. 12 point ROS noted here, otherwise unremarkable. PMD: Not currently PMH: as above Sx: Gastric bypass in 2000, kidney stents in 2017 SH: denies smoking and drugs. Admits to drinking 6 pack of beer every night for the last 5 years All: acetominophen, oxycodone FH: none Meds: per MAR Present on Admission - Present on Admission Any Indicators Present on Admission: No Past Patient History - Past Social History Smoking Status: Never Smoked - CARDIAC Hx Cardiac Disorders: No - PULMONARY Hx Respiratory Disorders: No - NEUROLOGICAL Hx Neurological Disorder: No - HEENT Hx HEENT Problems: No - RENAL Hx Chronic Kidney Disease: No - ENDOCRINE/METABOLIC Hx Endocrine Disorders: No - HEMATOLOGICAL/ONCOLOGICAL Hx Blood Disorders: No - INTEGUMENTARY Hx Dermatological Problems: No - MUSCULOSKELETAL/RHEUMATOLOGICAL Hx Musculoskeletal Disorders: No - GASTROINTESTINAL Hx Gastrointestinal Disorders: Yes Hx Gastroesophageal Reflux: Yes - GENITOURINARY/GYNECOLOGICAL Hx Genitourinary Disorders: No - PSYCHIATRIC Hx Psychophysiologic Disorder: No Hx Substance Use: No - SURGICAL HISTORY Hx Gastric Bypass Surgery: Yes (2000) Other/Comment: right ankle surgery 1999. 2 kidney stents - ANESTHESIA Hx Anesthesia: Yes Hx Anesthesia Reactions: No Hx Malignant Hyperthermia: No Meds Allergies/Adverse Reactions: Allergies Allergy/AdvReac Type Severity Reaction Status Date / Time acetaminophen [From Percocet] Allergy RASH Verified 03/21/18 17:09 oxycodone [From Percocet] Allergy RASH Verified 03/21/18 17:09 Physical Exam - Constitutional Appears: No Acute Distress - Head Exam Head Exam: ATRAUMATIC, NORMAL INSPECTION - Eye Exam Eye Exam: EOMI Pupil Exam: PERRL - ENT Exam ENT Exam: Mucous Membranes Moist - Respiratory Exam Respiratory Exam: Clear to Auscultation Bilateral. absent: Respiratory Distress - Cardiovascular Exam Cardiovascular Exam: REGULAR RHYTHM, +S1, +S2 - GI/Abdominal Exam GI & Abdominal Exam: Normal Bowel Sounds. absent: Firm, Guarding Additional comments: globular abdomen. RUQ tenderness to deep palpation. Castaneda sign positive. - Extremities Exam Extremities exam: Positive for: normal inspection. Negative for: calf tenderness - Neurological Exam Neurological exam: Alert, Oriented x3 - Skin Skin Exam: Normal Color, Warm Results - Vital Signs Recent Vital Signs: Last Vital Signs Temp 98.7 F 03/21/18 17:07 Pulse 88 03/21/18 21:06 Resp 16 03/21/18 21:06 BP 137/63 03/21/18 21:06 Pulse Ox 97 03/21/18 21:06 - Labs Result Diagrams: 03/21/18 18:00 03/21/18 18:00 Labs: Laboratory Results - last 24 hr 03/21/18 03/21/18 03/21/18 18:00 18:00 18:00 WBC 4.4 L D RBC 4.32 Hgb 13.2 L Hct 41.3 L MCV 95.6 MCH 30.6 MCHC 32.0 RDW 16.5 H Plt Count 279 MPV 8.6 Gran % 63.1 Lymph % (Auto) 21.0 L [place] % (Auto) 9.5 H Eos % (Auto) 5.9 H Baso % (Auto) 0.5 Gran # 2.79 Lymph # (Auto) 0.9 L [place] # (Auto) 0.4 Eos # (Auto) 0.3 Baso # (Auto) 0.02 PT 11.8 INR 1.03 APTT 33.9 Sodium 141 Potassium 4.0 Chloride 107 Carbon Dioxide 25 Anion Gap 14 BUN 5 L Creatinine 0.8 Est GFR ( Amer) > 60 Est GFR (Non-Af Amer) > 60 Random Glucose 92 Calcium 8.9 Total Bilirubin 2.3 H AST 175 H ALT 126 H Alkaline Phosphatase 330 H Troponin I < 0.01 Total Protein 7.8 Albumin 3.7 Globulin 4.1 Albumin/Globulin Ratio 0.9 L Lipase 147 Assessment & Plan - Assessment and Plan (Free Text) Assessment: This is a pleasant 53M with PMH of GERD, BPH, kidney stents in 2018, gastric bypass in 2000, morbid obesity and alcohol abuse presenting to the ED for 1 week history of abdominal pain. Plan: Abdominal pain: -concern for cholidocolithiasis -elevated LFTs, Tbili -Gallbladder US showed gallstones, CBD is 7.7mm -vital signs q4 -MRCP pending -NPO except meds -zofran prn for nausea -toradol prn for pain -GI on consult, Dr. Marsh -Surgery on consult, Dr. Rosario Hx of Alcohol abuse: -last drink was 11pm on 03/10, drinks 6 pack of beer per day for several years -CIWA protocol -banana bag -folic acid, thiamine, multivitamin -ativan prn for seizure -aspiration, seizure, fall precautions Hx GERD -continue protonix PPX with protonix SCD Patient seen and examined with attending, Dr. Eloise Hannah
[2018-03-21] MEDS ORDERED: Multivitamin (MVI) 10 ML, Thiamine 100 MG, Folic Acid 1 MG in Sodium Chloride 0.9% 1,00... IV ONE (23:50)
[2018-03-22] MEDS ORDERED: DiphenhydrAMINE 50 mg/ml Inj IVP STA (01:32)
[2018-03-22] MEDS: Pantoprazole 40 mg EC Tab PO SCH (06:16)
[2018-03-22 07:39] LABS: BASO # 0.01 K/mm3 (0.0-2.0); BASO % 0.2 % (0.0-3.0); EOS # 0.2 (0.0-0.7); EOS % 3.6 % (1.5-5.0); GRAN # 4.36 (1.4-6.5); GRAN % 73.7 % (50.0-68.0); HEMOGLOBIN 13.2 g/dL (14.0-18.0); LYMPH # 0.8 (1.2-3.4); MEAN CELL VOLUME 95.8 fl (80.0-105.0); MEAN CORPUSCULAR HEMOGLOBIN 30.6 pg (25.0-35.0); MEAN PLATELET VOLUME 8.6 fl (7.0-11.0); MONO # 0.5 (0.1-0.6); MONO % 8.5 % (1.0-6.0); RBC 4.31 10^6/uL (3.5-6.1); RED CELL DISTRIBUTION WIDTH 16.6 % (11.5-14.5); WHITE BLOOD COUNT 5.9 10^3/uL (4.5-11.0)
[2018-03-22 08:43] LABS: ALB/GLOB RATIO 0.8 (1.1-1.8); ALBUMIN 3.5 g/dL (3.0-4.8); ALT/SGPT 114 U/L (7-56); AST/SGOT 111 U/L (17-59); BLOOD UREA NITROGEN 8 mg/dL (7-21); CALCIUM 8.9 mg/dL (8.4-10.5); GFR NON-AFRICAN AMERICAN > 60
--- NOTE | 2018-03-22 09:29 | RAD ---
Date of service: 03/22/2018 HISTORY: preop clearance COMPARISON: 03/19/2018 FINDINGS: LUNGS: No active pulmonary disease. PLEURA: No significant pleural effusion identified, no pneumothorax apparent. CARDIOVASCULAR: No aortic atherosclerotic calcification present. Normal cardiac size. Mild vascular congestion OSSEOUS STRUCTURES: No significant abnormalities. VISUALIZED UPPER ABDOMEN: Normal. OTHER FINDINGS: None. IMPRESSION: No active disease. Mild vascular congestion
--- NOTE | 2018-03-22 10:44 | CARD ---
APPROVED REPORT Date of service: 03/22/2018 EKG Measurement Heart [id number] <Conclusion> Normal sinus rhythm Minimal voltage criteria for LVH, may be normal variant Cannot rule out Anterior infarct, age undetermined Abnormal ECG
[2018-03-22] MEDS: Multivitamin With Minerals Tab PO SCH (11:00)
--- NOTE | 2018-03-22 11:22 | CP.PCM.CON ---
<Eusebio Lan - Last Filed: 03/22/18 16:46> History of Present Illness - History of Present Illness History of Present Illness: PGY-4 GI Fellow Consult Note Pt is a 53 yo male with h/o Gastric Bypass (lap band? in 2000 with subsequent 300 lb weight loss), Obesity, HTN, BPH, Nephrolithiasis s/p stenting presenting with complaint of abd pain. He states over the last several days to week that he has had mostly RUQ abd pain, sharp, non-radiating, worse with PO intake and up to 8/10 severity at worse. States that symptoms seem to come and go. He denied any f/c, n/v, constipation nor diarrhea. He originally presented a few days prior, diagnosis with cholelithiasis and after being told that he will likely need surgery, he states that he panicked and signed out AMA. He returned on 03/21 at the behest of family. Endo History EGD: Thinks he had one at time of bariatric surgery, none since CSPY: Never had MHx: morbid obesity, HTN and DM-resolved since gastric bypass surgery, gastritis, cholelithiasis, BPH, nephrolithiasis SurgHx: gastric bypass 2000, surgeon name unknown. cystoscopy w/ ureteral stent placement Meds: Reviewed in chart FamHx: Denied fam h/o GI problems SocHx: denies drug, + 6 pack beer/day All: Oxycodone, APAP Past Patient History - Past Social History Smoking Status: Never Smoked - CARDIAC Hx Cardiac Disorders: No - PULMONARY Hx Respiratory Disorders: No - NEUROLOGICAL Hx Neurological Disorder: No - HEENT Hx HEENT Problems: No - RENAL Hx Chronic Kidney Disease: No - ENDOCRINE/METABOLIC Hx Endocrine Disorders: No - HEMATOLOGICAL/ONCOLOGICAL Hx Blood Disorders: No - INTEGUMENTARY Hx Dermatological Problems: No - MUSCULOSKELETAL/RHEUMATOLOGICAL Hx Musculoskeletal Disorders: No - GASTROINTESTINAL Hx Gastrointestinal Disorders: Yes Hx Gastroesophageal Reflux: Yes - GENITOURINARY/GYNECOLOGICAL Hx Genitourinary Disorders: No - PSYCHIATRIC Hx Psychophysiologic Disorder: No Hx Substance Use: No - SURGICAL HISTORY Hx Gastric Bypass Surgery: Yes (2000) Other/Comment: right ankle surgery 2000. 2 kidney stents - ANESTHESIA Hx Anesthesia: Yes Hx Anesthesia Reactions: No Hx Malignant Hyperthermia: No Meds Allergies/Adverse Reactions: Allergies Allergy/AdvReac Type Severity Reaction Status Date / Time acetaminophen [From Percocet] Allergy RASH Verified 03/21/18 17:09 oxycodone [From Percocet] Allergy RASH Verified 03/21/18 17:09 - Medications Medications: Current Medications Folic Acid (Folic Acid) 1 mg PO DAILY [facility] Last Admin: 03/22/18 11:00 Dose: 1 mg Lactated Ringer's (Lactated Ringer's) 1,000 mls @ 150 mls/hr IV .Q6H40M [facility] Ketorolac Tromethamine (Toradol) 30 mg IVP Q6 PRN PRN Reason: Pain, severe (8-10) Lorazepam (Ativan) 1 mg IVP Q6H PRN; Protocol PRN Reason: Seizure activity Multivitamins/Minerals (Therapeutic-M Tab) 1 tab PO 0800 [facility] Last Admin: 03/22/18 11:00 Dose: 1 tab Ondansetron HCl (Zofran Inj) 4 mg IVP Q6H PRN PRN Reason: Nausea/Vomiting Pantoprazole Sodium (Protonix Ec Tab) 40 mg PO 0600 [facility] Last Admin: 03/22/18 06:16 Dose: 40 mg Thiamine HCl (Vitamin B1 Tab) 50 mg PO DAILY [facility] Last Admin: 03/22/18 11:00 Dose: 50 mg Physical Exam - Constitutional Appears: Well, No Acute Distress, Chronically Ill - Head Exam Head Exam: ATRAUMATIC, NORMAL INSPECTION - Eye Exam Eye Exam: EOMI. absent: Conjunctival injection, Scleral icterus - ENT Exam ENT Exam: Mucous Membranes Moist, Normal External Ear Exam. absent: Mucous Membranes Dry - Respiratory Exam Respiratory Exam: Clear to Auscultation Bilateral, NORMAL BREATHING PATTERN. absent: Accessory Muscle Use, Respiratory Distress - Cardiovascular Exam Cardiovascular Exam: REGULAR RHYTHM, RRR. absent: Bradycardia, Tachycardia - GI/Abdominal Exam GI & Abdominal Exam: Distended (mildly), Normal Bowel Sounds, Soft. absent: Bruit, Diminished Bowel Sounds, Firm, Guarding, Hernia, Organomegaly, Pulsatile Mass, Rebound, Rigid, Tenderness (though exam limited by body habitus) - Rectal Exam Rectal Exam: Deferred - Extremities Exam Extremities exam: Positive for: normal inspection, pedal edema (trace bilaterally) - Neurological Exam Neurological exam: Alert, CN II-XII Intact - Psychiatric Exam Psychiatric exam: Normal Affect, Normal Mood - Skin Skin Exam: Normal Color, Warm Results - Vital Signs Recent Vital Signs: Last Vital Signs Temp 98.2 F 03/22/18 08:15 Pulse 68 03/22/18 08:15 Resp 20 03/22/18 08:15 BP 124/75 03/22/18 08:15 Pulse Ox 98 03/22/18 08:15 - Labs Result Diagrams: 03/22/18 07:20 03/22/18 07:20 Labs: Laboratory Results - last 24 hr 03/21/18 03/21/18 03/21/18 18:00 18:00 18:00 WBC 4.4 L D RBC 4.32 Hgb 13.2 L Hct 41.3 L MCV 95.6 MCH 30.6 MCHC 32.0 RDW 16.5 H Plt Count 279 MPV 8.6 Gran % 63.1 Lymph % (Auto) 21.0 L Meeker % (Auto) 9.5 H Eos % (Auto) 5.9 H Baso % (Auto) 0.5 Gran # 2.79 Lymph # (Auto) 0.9 L Meeker # (Auto) 0.4 Eos # (Auto) 0.3 Baso # (Auto) 0.02 PT 11.8 INR 1.03 APTT 33.9 Sodium 141 Potassium 4.0 Chloride 107 Carbon Dioxide 25 Anion Gap 14 BUN 5 L Creatinine 0.8 Est GFR ( Amer) > 60 Est GFR (Non-Af Amer) > 60 Random Glucose 92 Calcium 8.9 Phosphorus Magnesium Total Bilirubin 2.3 H AST 175 H ALT 126 H Alkaline Phosphatase 330 H Troponin I < 0.01 Total Protein 7.8 Albumin 3.7 Globulin 4.1 Albumin/Globulin Ratio 0.9 L Lipase 147 Blood Type Blood Type Confirm Antibody Screen Crossmatch BBK History Checked 03/22/18 03/22/18 03/22/18 07:20 07:20 08:00 WBC 5.9 D RBC 4.31 Hgb 13.2 L Hct 41.3 L MCV 95.8 MCH 30.6 MCHC 32.0 RDW 16.6 H Plt Count 261 MPV 8.6 Gran % 73.7 H Lymph % (Auto) 14.0 L Meeker % (Auto) 8.5 H Eos % (Auto) 3.6 Baso % (Auto) 0.2 Gran # 4.36 Lymph # (Auto) 0.8 L Meeker # (Auto) 0.5 Eos # (Auto) 0.2 Baso # (Auto) 0.01 PT INR APTT Sodium 140 Potassium 3.9 Chloride 107 Carbon Dioxide 24 Anion Gap 13 BUN 8 Creatinine 0.8 Est GFR ( Amer) > 60 Est GFR (Non-Af Amer) > 60 Random Glucose 97 Calcium 8.9 Phosphorus 3.2 Magnesium 2.0 Total Bilirubin 2.0 H AST 111 H D ALT 114 H Alkaline Phosphatase 367 H Troponin I Total Protein 7.8 Albumin 3.5 Globulin 4.2 Albumin/Globulin Ratio 0.8 L Lipase Blood Type O POSITIVE Blood Type Confirm Antibody Screen Negative Crossmatch See Detail BBK History Checked No verified bt 03/22/18 09:15 WBC RBC Hgb Hct MCV MCH MCHC RDW Plt Count MPV Gran % Lymph % (Auto) Meeker % (Auto) Eos % (Auto) Baso % (Auto) Gran # Lymph # (Auto) Meeker # (Auto) Eos # (Auto) Baso # (Auto) PT INR APTT Sodium Potassium Chloride Carbon Dioxide Anion Gap BUN Creatinine Est GFR ( Amer) Est GFR (Non-Af Amer) Random Glucose Calcium Phosphorus Magnesium Total Bilirubin AST ALT Alkaline Phosphatase Troponin I Total Protein Albumin Globulin Albumin/Globulin Ratio Lipase Blood Type Blood Type Confirm O POSITIVE Antibody Screen Crossmatch BBK History Checked Assessment & Plan - Assessment and Plan (Free Text) Assessment: 53 yo Male with obesity, s/p gastric bypass in 2000, HTN, EtOH abuse presenting with abdominal pain and abnormal liver tests. # Abd Pain: Suspect related to cholelithiasis with biliary colic. Unclear if choledocholithiasis. CBD 7.7 mm, though not dilated per read. AP 289->330 upon admission but Bili 5.2 -> 3.3. Gen Surg consulted. MRCP pending. Lipase wnl at 147. # Abnormal liver tests: Suspect multifactorial due to EtOH abuse and possible choledocholithiasis. # EtOH Abuse: 6 pack beer nightly. Last drink night prior to admission. No h/o withdrawal. # GERD: On omeprazole 40 mg as OP. # CRC Screening: Average risk patient; never had CSPY prior. Plan: - Await MRCP results - May need EUS pending course, but would not be able to perform here due to bariatric surgery history - Monitor CBC, CMP - Gen Surg Following - IVF - NPO - CIWA protocol and Vit supp - Encourage EtOH cessation - Cont PPI - OP CSPY for CRC screening Pt seen and examined with Dr. Marsh; see attestation for further recs/changes. <Jairon Marsh Y - Last Filed: 03/22/18 16:58> Meds - Medications Medications: Current Medications Folic Acid (Folic Acid) 1 mg PO DAILY [facility] Last Admin: 03/22/18 11:00 Dose: 1 mg Lactated Ringer's (Lactated Ringer's) 1,000 mls @ 150 mls/hr IV .Q6H40M [facility] Last Admin: 03/22/18 11:58 Dose: 150 mls/hr Ketorolac Tromethamine (Toradol) 30 mg IVP Q6 PRN PRN Reason: Pain, severe (8-10) Lorazepam (Ativan) 1 mg IVP Q6H PRN; Protocol PRN Reason: Seizure activity Multivitamins/Minerals (Therapeutic-M Tab) 1 tab PO 0800 [facility] Last Admin: 03/22/18 11:00 Dose: 1 tab Ondansetron HCl (Zofran Inj) 4 mg IVP Q6H PRN PRN Reason: Nausea/Vomiting Pantoprazole Sodium (Protonix Ec Tab) 40 mg PO 0600 [facility] Last Admin: 03/22/18 06:16 Dose: 40 mg Thiamine HCl (Vitamin B1 Tab) 50 mg PO DAILY [facility] Last Admin: 03/22/18 11:00 Dose: 50 mg Results - Vital Signs Recent Vital Signs: Last Vital Signs Temp 98.6 F 03/22/18 14:00 Pulse 67 03/22/18 14:00 Resp 20 03/22/18 14:00 BP 114/64 03/22/18 14:00 Pulse Ox 99 03/22/18 14:00 - Labs Result Diagrams: 03/22/18 07:20 03/22/18 07:20 Labs: Laboratory Results - last 24 hr 03/21/18 03/21/18 03/21/18 18:00 18:00 18:00 WBC 4.4 L D RBC 4.32 Hgb 13.2 L Hct 41.3 L MCV 95.6 MCH 30.6 MCHC 32.0 RDW 16.5 H Plt Count 279 MPV 8.6 Gran % 63.1 Lymph % (Auto) 21.0 L Meeker % (Auto) 9.5 H Eos % (Auto) 5.9 H Baso % (Auto) 0.5 Gran # 2.79 Lymph # (Auto) 0.9 L Meeker # (Auto) 0.4 Eos # (Auto) 0.3 Baso # (Auto) 0.02 PT 11.8 INR 1.03 APTT 33.9 Sodium 141 Potassium 4.0 Chloride 107 Carbon Dioxide 25 Anion Gap 14 BUN 5 L Creatinine 0.8 Est GFR ( Amer) > 60 Est GFR (Non-Af Amer) > 60 Random Glucose 92 Calcium 8.9 Phosphorus Magnesium Total Bilirubin 2.3 H AST 175 H ALT 126 H Alkaline Phosphatase 330 H Troponin I < 0.01 Total Protein 7.8 Albumin 3.7 Globulin 4.1 Albumin/Globulin Ratio 0.9 L Lipase 147 Alcohol, Quantitative Blood Type Blood Type Confirm Antibody Screen Crossmatch BBK History Checked 03/22/18 03/22/18 03/22/18 07:20 07:20 08:00 WBC 5.9 D RBC 4.31 Hgb 13.2 L Hct 41.3 L MCV 95.8 MCH 30.6 MCHC 32.0 RDW 16.6 H Plt Count 261 MPV 8.6 Gran % 73.7 H Lymph % (Auto) 14.0 L Meeker % (Auto) 8.5 H Eos % (Auto) 3.6 Baso % (Auto) 0.2 Gran # 4.36 Lymph # (Auto) 0.8 L Meeker # (Auto) 0.5 Eos # (Auto) 0.2 Baso # (Auto) 0.01 PT INR APTT Sodium 140 Potassium 3.9 Chloride 107 Carbon Dioxide 24 Anion Gap 13 BUN 8 Creatinine 0.8 Est GFR ( Amer) > 60 Est GFR (Non-Af Amer) > 60 Random Glucose 97 Calcium 8.9 Phosphorus 3.2 Magnesium 2.0 Total Bilirubin 2.0 H AST 111 H D ALT 114 H Alkaline Phosphatase 367 H Troponin I Total Protein 7.8 Albumin 3.5 Globulin 4.2 Albumin/Globulin Ratio 0.8 L Lipase Alcohol, Quantitative Blood Type O POSITIVE Blood Type Confirm Antibody Screen Negative Crossmatch See Detail BBK History Checked No verified bt 03/22/18 03/22/18 09:15 12:00 WBC RBC Hgb Hct MCV MCH MCHC RDW Plt Count MPV Gran % Lymph % (Auto) Meeker % (Auto) Eos % (Auto) Baso % (Auto) Gran # Lymph # (Auto) Meeker # (Auto) Eos # (Auto) Baso # (Auto) PT INR APTT Sodium Potassium Chloride Carbon Dioxide Anion Gap BUN Creatinine Est GFR ( Amer) Est GFR (Non-Af Amer) Random Glucose Calcium Phosphorus Magnesium Total Bilirubin AST ALT Alkaline Phosphatase Troponin I Total Protein Albumin Globulin Albumin/Globulin Ratio Lipase Alcohol, Quantitative < 10 Blood Type Blood Type Confirm O POSITIVE Antibody Screen Crossmatch BBK History Checked Attending/Attestation - Attestation I have personally seen and examined this patient.: Yes I have fully participated in the care of the patient.: Yes I have reviewed all pertinent clinical information: Yes Notes (Text): 03/22/18 16:52 I have seen and examined patient with GI fellow. Agree with above documentation with the following additions. In brief, this is a 53 year old male with history of obesity (BMI 49), gastric bypass surgery, who presents to hospital with complaint of progressive abdominal pain for the past one week. He endorses a sharp, RUQ pain, 8/10 intensity that is worse after meal consumption. He otherwise denies nausea, vomiting, fever/chills, weight loss, rectal bleeding, jaundice, or change in bowel habits. He had an EGD prior to gastric bypass surgery which was normal as per patient, no prior colonoscopy. Of note, he does have history of ETOH abuse and consumes nearly 6 beers per day. All other 12 point review of systems performed, negative aside from mentioned above. Morbid obesity History of gastric bypass surgery ETOH abuse Abdominal pain Transaminitis US imaging reviewed by me showing cholelithiasis, CBD 7mm, no intrahepatic bili zahra dilation - NPO - LFTs stable, continue to monitor - MRCP ordered by medical team, follow up results - Follow up surgical recommendations regarding potential cholecystectomy - Ideally EUS evaluation would be beneficial in this situation given potential of choledocholithiasis, however not possible due to history of gastric bypass surgery. If choledocholithiasis is present, patient will require transfer to facility capable of performing double balloon assisted ERCP to access hepatobiliary limb. - ETOH cessation counseling - Will continue to monitor patient clinical course
[2018-03-22] MEDS: Lactated Ringer's 1,000 ML IV SCH ×2 (11:58→23:16)
--- NOTE | 2018-03-22 15:10 | US ---
Date of service: 03/21/2018 HISTORY: RUQ pain COMPARISON: None. TECHNIQUE: Sonographic evaluation of the right upper quadrant of the abdomen. FINDINGS: LIVER: Measures 19.8 cm in length. Normal echogenicity of the liver parenchyma. No mass. No intrahepatic bile duct dilatation. GALLBLADDER: Multiple gallstones are seen. COMMON BILE DUCT: Measures 7.7 mm. No stones. No dilatation. PANCREAS: Unremarkable as visualized. No mass. No ductal dilatation. RIGHT KIDNEY: Measures 12.8 x 5.5 x 7.2 cm in length. Normal echogenicity. No calculus, mass, or hydronephrosis. AORTA: Not visualized IVC: Unremarkable. OTHER FINDINGS: The report concurs with the preliminary [facility] report IMPRESSION: Cholelithiasis.
--- NOTE | 2018-03-22 18:38 | CP.PCM.PN ---
<Alex Trejo - Last Filed: 03/22/18 19:15> Subjective - Date & Time of Evaluation Date of Evaluation: 03/22/18 Time of Evaluation: 11:00 - Subjective Subjective: Alex Trejo DO, PGY-1 Hospitalist Progress Note for Dr. Luis Patient was seen and examined at bedside this AM. He reports his RUQ pain has improved s/p toradol. He offers no new complaints this AM but states he has been NPO for a long time now and would like to eat again. He denies nausea/vomiting/diarrhea, or continued RUQ pain. Objective - Vital Signs/Intake and Output Vital Signs (last 24 hours): Temp Pulse Resp BP Pulse Ox 98.6 F 67 20 114/64 99 03/22/18 14:00 03/22/18 14:00 03/22/18 14:00 03/22/18 14:00 03/22/18 14:00 - Medications Medications: Current Medications Folic Acid (Folic Acid) 1 mg PO DAILY [facility] Last Admin: 03/22/18 11:00 Dose: 1 mg Lactated Ringer's (Lactated Ringer's) 1,000 mls @ 150 mls/hr IV .Q6H40M [facility] Last Admin: 03/22/18 11:58 Dose: 150 mls/hr Ketorolac Tromethamine (Toradol) 30 mg IVP Q6 PRN PRN Reason: Pain, severe (8-10) Lorazepam (Ativan) 1 mg IVP Q6H PRN; Protocol PRN Reason: Seizure activity Multivitamins/Minerals (Therapeutic-M Tab) 1 tab PO 0800 [facility] Last Admin: 03/22/18 11:00 Dose: 1 tab Ondansetron HCl (Zofran Inj) 4 mg IVP Q6H PRN PRN Reason: Nausea/Vomiting Pantoprazole Sodium (Protonix Ec Tab) 40 mg PO 0600 [facility] Last Admin: 03/22/18 06:16 Dose: 40 mg Thiamine HCl (Vitamin B1 Tab) 50 mg PO DAILY [facility] Last Admin: 03/22/18 11:00 Dose: 50 mg - Labs Labs: 03/22/18 07:20 03/22/18 07:20 PT 11.8 SECONDS (9.4-12.5) 03/21/18 18:00 INR 1.03 03/21/18 18:00 APTT 33.9 Seconds (25.1-36.5) 03/21/18 18:00 - Constitutional Appears: Non-toxic, No Acute Distress - Head Exam Head Exam: ATRAUMATIC, NORMOCEPHALIC - Eye Exam Eye Exam: EOMI, Normal appearance, PERRL - ENT Exam ENT Exam: Mucous Membranes Moist - Neck Exam Neck Exam: Full ROM, Normal Inspection - Respiratory Exam Respiratory Exam: Clear to Ausculation Bilateral, NORMAL BREATHING PATTERN. absent: Rales, Rhonchi, Wheezes - Cardiovascular Exam Cardiovascular Exam: REGULAR RHYTHM, RRR, +S1, +S2. absent: Gallop, Rubs, Murmur - GI/Abdominal Exam GI & Abdominal Exam: Soft, Tenderness (mild tenderness to palpation RUQ), Normal Bowel Sounds. absent: Firm, Guarding, Rigid, Organomegaly, Rebound - Extremities Exam Extremities Exam: Full ROM, Normal Inspection - Back Exam Back Exam: NORMAL INSPECTION - Neurological Exam Neurological Exam: Alert, Awake, Oriented x3 - Psychiatric Exam Psychiatric exam: Normal Affect, Normal Mood - Skin Skin Exam: Dry, Intact, Warm Assessment and Plan - Assessment and Plan (Free Text) Assessment: 53 yo M with PMH of morbid obesity, HTN, DM2 (resolved s/p gastric bypass), GERD, cholelithiasis, BPH, and nephrolithiasis presented to ED with RUQ pain found to have findings concerning for acute cholecystitis and possible choledoch olithiasis on RUQ US in ED. Plan: 1. RUQ pain Likely 2/2 underlying cholecystitis vs choledocholithiasis Plan for MRCP today After MRCP result will decide whether to f/u with ERCP or surgery Surgery and GI following, recs appreciated 2. GERD Continue daily protonix 3. Hx DM2 Pt states DM2 resolved after weight loss and gastric bypass Monitor blood sugar closely ISS if needed 4. Hx BPH s/p cystoscopy with stent placement Currently does not complain of urinary retention, dysuria, or frequency Flomax as needed DVT/GI PPX: SCD (lovenox held for pre-op), protonix Full Code HHD Monitor on med/surg Case and plan reviewed and discussed with my attending Dr. Toby Trejo DO IM Resident PGY-1 Pager: [phone] <Indu Luis - Last Filed: 03/25/18 07:57> Objective - Vital Signs/Intake and Output Vital Signs (last 24 hours): Temp Pulse Resp BP Pulse Ox 97.4 F L 55 L 18 122/72 98 03/24/18 08:01 03/24/18 08:01 03/24/18 08:01 03/24/18 08:01 03/24/18 08:01 - Labs Labs: 03/24/18 07:00 03/24/18 07:00 PT 11.8 SECONDS (9.4-12.5) 03/21/18 18:00 INR 1.03 03/21/18 18:00 APTT 33.9 Seconds (25.1-36.5) 03/21/18 18:00 Attending/Attestation - Attestation I have personally seen and examined this patient.: Yes I have fully participated in the care of the patient.: Yes I have reviewed all pertinent clinical information, including history, physical exam and plan: Yes Notes (Text): 03/25/18 07:51 Attending note; Patient seen and examined with the resident. Patient is alert and awake. Complaining of right upper quadrant pain. Patient denies any fevers, chills. Currently nothing by mouth. Denies any urinary symptoms. Patient is a 53 -year-old male with PMH of morbid obesity, HTN, DM2, s/p gastric bypass, GERD, cholelithiasis, BPH, and nephrolithiasis, ureteral stent placement, prostate surgery is admitted with [facility]. 1. Cholelithiasis ;Abdominal ultrasound is positive for gallstones. No signs of acute cholecystitis. 2.Patient with elevated LFTs. Rule out choledocholithiasis. MRCP ordered. GI evaluation appreciated. Surgery evaluation appreciate. 3. History of BPH and prostate surgery; currently no urinary symptoms. 4. hydronephrosis. CAT scan reviewed. chronic. We will monitor with bladder scan. Currently no urinary symptoms. 5. History of gastric bypass surgery. The diagnosis, follow-up plan discussed with patient in detail.
[2018-03-22 20:59] LABS: HEPATITIS B SURFACE AG Negative (NEGATIVE)
[2018-03-22 21:05] LABS: HEPATITIS A IGM NEGATIVE (NEGATIVE); HEPATITIS B CORE AB NEGATIVE (NEGATIVE)
[2018-03-22 21:17] LABS: HEPATITIS C ANTIBODY NEGATIVE (NEGATIVE)
[2018-03-23] MEDS: Pantoprazole 40 mg EC Tab PO SCH (05:32)
[2018-03-23] MEDS: Lactated Ringer's 1,000 ML IV SCH ×3 (05:32→19:08)
[2018-03-23 07:46] LABS: BASO # 0.02 K/mm3 (0.0-2.0); BASO % 0.3 % (0.0-3.0); EOS # 0.2 (0.0-0.7); EOS % 2.7 % (1.5-5.0); GRAN # 4.55 (1.4-6.5); GRAN % 73.1 % (50.0-68.0); HEMOGLOBIN 12.5 g/dL (14.0-18.0); LYMPH # 0.8 (1.2-3.4); LYMPH % 12.7 % (22.0-35.0); MEAN CELL VOLUME 97.3 fl (80.0-105.0); MEAN CORPUSCULAR HEMOGLOBIN 30.6 pg (25.0-35.0); MEAN CORPUSCULAR HGB CONC 31.5 g/dl (31.0-37.0); MEAN PLATELET VOLUME 8.9 fl (7.0-11.0); MONO # 0.7 (0.1-0.6); MONO % 11.2 % (1.0-6.0); RBC 4.08 10^6/uL (3.5-6.1); RED CELL DISTRIBUTION WIDTH 16.7 % (11.5-14.5); WHITE BLOOD COUNT 6.2 10^3/uL (4.5-11.0)
[2018-03-23 08:10] LABS: ALB/GLOB RATIO 0.9 (1.1-1.8); ALBUMIN 3.3 g/dL (3.0-4.8); ALT/SGPT 90 U/L (7-56); AST/SGOT 64 U/L (17-59); BLOOD UREA NITROGEN 10 mg/dL (7-21); CALCIUM 9.1 mg/dL (8.4-10.5); GFR NON-AFRICAN AMERICAN > 60
--- NOTE | 2018-03-23 08:36 | CP.PCM.PN ---
Subjective - Date & Time of Evaluation Date of Evaluation: 03/23/18 Time of Evaluation: 08:31 - Subjective Subjective: Belle Abrams, PGY-1, Surgery Consult for Dr. Rosario Patient seen and examined at bedside. No overnight events reported. Patient mable es any complaints. Patient denies any nausea, vomiting, constipation, diarrhea, abdominal pain, chest pain, dyspnea. Objective - Vital Signs/Intake and Output Vital Signs (last 24 hours): Temp Pulse Resp BP Pulse Ox 98.2 F 61 20 121/75 98 03/23/18 07:54 03/23/18 07:54 03/23/18 07:54 03/23/18 07:54 03/23/18 07:54 Intake and Output: 03/23/18 03/23/18 06:59 18:59 Output Total 400 Balance -400 - Medications Medications: Current Medications Folic Acid (Folic Acid) 1 mg PO DAILY [facility] Last Admin: 03/22/18 11:00 Dose: 1 mg Lactated Ringer's (Lactated Ringer's) 1,000 mls @ 150 mls/hr IV .Q6H40M [facility] Last Admin: 03/23/18 05:32 Dose: 150 mls/hr Ketorolac Tromethamine (Toradol) 30 mg IVP Q6 PRN PRN Reason: Pain, severe (8-10) Last Admin: 03/22/18 23:19 Dose: 30 mg Lorazepam (Ativan) 1 mg IVP Q6H PRN; Protocol PRN Reason: Seizure activity Multivitamins/Minerals (Therapeutic-M Tab) 1 tab PO 0800 [facility] Last Admin: 03/22/18 11:00 Dose: 1 tab Ondansetron HCl (Zofran Inj) 4 mg IVP Q6H PRN PRN Reason: Nausea/Vomiting Pantoprazole Sodium (Protonix Ec Tab) 40 mg PO 0600 [facility] Last Admin: 03/23/18 05:32 Dose: 40 mg Thiamine HCl (Vitamin B1 Tab) 50 mg PO DAILY [facility] Last Admin: 03/22/18 11:00 Dose: 50 mg - Labs Labs: 03/23/18 07:20 03/23/18 07:20 PT 11.8 SECONDS (9.4-12.5) 03/21/18 18:00 INR 1.03 03/21/18 18:00 APTT 33.9 Seconds (25.1-36.5) 03/21/18 18:00 - Constitutional Appears: Well, Non-toxic, No Acute Distress - Head Exam Head Exam: ATRAUMATIC, NORMAL INSPECTION, NORMOCEPHALIC - Eye Exam Eye Exam: EOMI Pupil Exam: PERRL - ENT Exam ENT Exam: Mucous Membranes Moist - Neck Exam Neck Exam: Full ROM - Respiratory Exam Respiratory Exam: Clear to Ausculation Bilateral, NORMAL BREATHING PATTERN - Cardiovascular Exam Cardiovascular Exam: REGULAR RHYTHM - GI/Abdominal Exam GI & Abdominal Exam: Distended, Soft, Normal Bowel Sounds - Extremities Exam Extremities Exam: Full ROM - Neurological Exam Neurological Exam: Alert, Awake, CN II-XII Intact, Normal Gait, Oriented x3 - Psychiatric Exam Psychiatric exam: Normal Affect, Normal Mood - Skin Skin Exam: Dry, Intact, Normal Color Assessment and Plan - Assessment and Plan (Free Text) Assessment: 53 year old male with past medical history of obesity, gastritis, and benign prostatic hyperplasia presents with gallstones and dilated CBD on abdominal CT. Ultrasound showed gall stones but no fluid. CBD measured 7.7 mm. Plan: Follow up GI recommendations regarding choledocholithiasis for possible transfer for balloon assisted ERCP. Due to improving LFTs, unlikely that gall stone is completely obstructing common bile duct. GI prophylaxis is protonix. DVT prophylaxis with SCD Replete electrolytes as needed. Will discuss plan with Dr. Rosario.
--- NOTE | 2018-03-23 10:45 | CP.PCM.PN ---
<Eusebio Lan - Last Filed: 03/23/18 10:39> Subjective - Date & Time of Evaluation Date of Evaluation: 03/23/18 Time of Evaluation: 08:15 - Subjective Subjective: PGY-4 GI Fellow Prog Note Pt lying in bed when seen this AM. Denied any abd pain. Wants diet advanced. Prelime report of MRCP is positive for distal CBD stone. 5 point ROS negative other than stated above Objective - Vital Signs/Intake and Output Vital Signs (last 24 hours): Temp Pulse Resp BP Pulse Ox 98.2 F 61 20 121/75 98 03/23/18 07:54 03/23/18 07:54 03/23/18 07:54 03/23/18 07:54 03/23/18 07:54 Intake and Output: 03/23/18 03/23/18 06:59 18:59 Output Total 400 Balance -400 - Medications Medications: Current Medications Folic Acid (Folic Acid) 1 mg PO DAILY [facility] Last Admin: 03/22/18 11:00 Dose: 1 mg Lactated Ringer's (Lactated Ringer's) 1,000 mls @ 150 mls/hr IV .Q6H40M [facility] Last Admin: 03/23/18 05:32 Dose: 150 mls/hr Ketorolac Tromethamine (Toradol) 30 mg IVP Q6 PRN PRN Reason: Pain, severe (8-10) Last Admin: 03/22/18 23:19 Dose: 30 mg Lorazepam (Ativan) 1 mg IVP Q6H PRN; Protocol PRN Reason: Seizure activity Multivitamins/Minerals (Therapeutic-M Tab) 1 tab PO 0800 [facility] Last Admin: 03/22/18 11:00 Dose: 1 tab Ondansetron HCl (Zofran Inj) 4 mg IVP Q6H PRN PRN Reason: Nausea/Vomiting Pantoprazole Sodium (Protonix Ec Tab) 40 mg PO 0600 [facility] Last Admin: 03/23/18 05:32 Dose: 40 mg Thiamine HCl (Vitamin B1 Tab) 50 mg PO DAILY [facility] Last Admin: 03/22/18 11:00 Dose: 50 mg - Labs Labs: 03/23/18 07:20 03/23/18 07:20 PT 11.8 SECONDS (9.4-12.5) 10/28/18 18:00 INR 1.03 03/21/18 18:00 APTT 33.9 Seconds (25.1-36.5) 03/21/18 18:00 - Constitutional Appears: Well, No Acute Distress, Other (Obese) - Head Exam Head Exam: ATRAUMATIC, NORMAL INSPECTION - Eye Exam Eye Exam: EOMI. absent: Conjunctival injection, Scleral icterus - Respiratory Exam Respiratory Exam: NORMAL BREATHING PATTERN. absent: Accessory Muscle Use, Respiratory Distress - GI/Abdominal Exam GI & Abdominal Exam: Distended (mildly, though obese limiting exam), Soft, Normal Bowel Sounds. absent: Firm, Guarding, Rigid, Tenderness, Mass, Organome dimitri Assessment and Plan - Assessment and Plan (Free Text) Assessment: 53 yo Male with obesity, s/p gastric bypass in 2000, HTN, EtOH abuse presenting with abdominal pain and abnormal liver tests. # Abd Pain: Improved, but due to choledocholithiasis seen on prelim MRCP read. CBD 7.7 mm, though not dilated per US read. Liver tests improving but Bili unchanged over last 24 hrs Gen Surg consulted. Lipase wnl at 147. # Abnormal liver tests: Improving. Suspect multifactorial due to EtOH abuse and choledocholithiasis. # EtOH Abuse: 6 pack beer nightly. Last drink night prior to admission. No h/o withdrawal. # GERD: On omeprazole 40 mg as OP. # CRC Screening: Average risk patient; never had CSPY prior. Plan: - Plan to transfer patient to [facility] for advanced bariatric ERCP by Dr. Morse --- Discuss with primary team and information provided to facilitate transfer hopefully today - Monitor CBC, CMP - Gen Surg Following - CIWA protocol and Vit supp - Encourage EtOH cessation - Cont PPI - OP CSPY for CRC screening Pt discussed with Dr. Marsh; see attestation for further recs/changes. <Jairon Marsh - Last Filed: 03/23/18 12:24> Objective - Vital Signs/Intake and Output Vital Signs (last 24 hours): Temp Pulse Resp BP Pulse Ox 98.2 F 61 20 121/75 98 03/23/18 07:54 03/23/18 07:54 03/23/18 07:54 03/23/18 07:54 03/23/18 07:54 Intake and Output: 03/23/18 03/23/18 06:59 18:59 Output Total 400 Balance -400 - Medications Medications: Current Medications Folic Acid (Folic Acid) 1 mg PO DAILY [facility] Last Admin: 03/23/18 11:10 Dose: 1 mg Lactated Ringer's (Lactated Ringer's) 1,000 mls @ 150 mls/hr IV .Q6H40M [facility] Last Admin: 03/23/18 05:32 Dose: 150 mls/hr Ketorolac Tromethamine (Toradol) 30 mg IVP Q6 PRN PRN Reason: Pain, severe (8-10) Last Admin: 03/22/18 23:19 Dose: 30 mg Lorazepam (Ativan) 1 mg IVP Q6H PRN; Protocol PRN Reason: Seizure activity Multivitamins/Minerals (Therapeutic-M Tab) 1 tab PO 0800 [facility] Last Admin: 03/23/18 11:10 Dose: 1 tab Ondansetron HCl (Zofran Inj) 4 mg IVP Q6H PRN PRN Reason: Nausea/Vomiting Pantoprazole Sodium (Protonix Ec Tab) 40 mg PO 0600 [facility] Last Admin: 03/23/18 05:32 Dose: 40 mg Thiamine HCl (Vitamin B1 Tab) 50 mg PO DAILY [facility] Last Admin: 03/23/18 12:10 Dose: 50 mg - Labs Labs: 03/23/18 07:20 03/23/18 07:20 PT 11.8 SECONDS (9.4-12.5) 03/21/18 18:00 INR 1.03 03/21/18 18:00 APTT 33.9 Seconds (25.1-36.5) 03/21/18 18:00 Attending/Attestation - Attestation I have fully participated in the care of the patient.: Yes I have reviewed all pertinent clinical information, including history, physical exam and plan: Yes Notes (Text): 03/23/18 12:21 MRCP reviewed by me showing dilated CBD with distal tapering. LFTs remain elevated, clinical presentation suggestive of retained distal CBD stone. - Given patient history of gastric bypass surgery, he will require double balloon assisted ERCP to properly access Y limb and relieve obstruction. This equipment is not available at [place], therefore I have discussed case with Dr. Morse at [facility] who has agreed to accept the patient in transfer and perform the necessary intervention. He will eventually require surgical consideration of cholecystectomy following resolution of symptoms. Discussed with Dr. Rosario and Toby. - Continue to monitor LFTs - Clear liquid diet - Pending transfer to [facility] and bed assignment
[2018-03-23] MEDS: Multivitamin With Minerals Tab PO SCH (11:10)
--- NOTE | 2018-03-23 12:47 | MRI ---
Date of service: 03/22/2018 PROCEDURE: Magnetic Resonance Cholangiopancreatography HISTORY: Rule out choledocholithiasis COMPARISON: None available. TECHNIQUE: Multiplanar, multisequence MR images of the abdomen were obtained, including heavily T2 weighted MRCP images of the biliary system. Rotating maximum intensity projection images of the biliary system were generated. FINDINGS: MRCP: The common duct is mildly dilated measuring between 8 and 10 mm. There are no stones seen within the common duct. LIVER: Unremarkable. GALLBLADDER: Small gallstones. Mild distention of the gallbladder SPLEEN: Unremarkable. PANCREAS: Unremarkable. ADRENALS: Unremarkable. KIDNEYS: Severe bilateral hydronephrosis AORTA: No aneurysm. ASCITES: None. OTHER FINDINGS: None. IMPRESSION: Distended gallbladder with multiple small gallstones. No evidence of common duct stones. Severe bilateral hydronephrosis and hydroureter
--- NOTE | 2018-03-23 16:28 | CP.PCM.PN ---
<Alex Trejo - Last Filed: 03/24/18 07:15> Subjective - Date & Time of Evaluation Date of Evaluation: 03/23/18 Time of Evaluation: 10:00 - Subjective Subjective: Alex Trejo DO, PGY-1 Hospitalist Progress Note for Dr. Luis Patient was seen and examined at bedside this AM. He offers no new complaints and states his RUQ pain has resolved since last night. He was able to get the MRCP done last night. Objective - Vital Signs/Intake and Output Vital Signs (last 24 hours): Temp Pulse Resp BP Pulse Ox 98.2 F 61 20 121/75 98 03/23/18 07:54 03/23/18 07:54 03/23/18 07:54 03/23/18 07:54 03/23/18 07:54 Intake and Output: 03/23/18 03/23/18 06:59 18:59 Output Total 400 Balance -400 - Medications Medications: Current Medications Folic Acid (Folic Acid) 1 mg PO DAILY [facility] Last Admin: 03/23/18 11:10 Dose: 1 mg Lactated Ringer's (Lactated Ringer's) 1,000 mls @ 150 mls/hr IV .Q6H40M [facility] Last Admin: 03/23/18 12:25 Dose: 150 mls/hr Ketorolac Tromethamine (Toradol) 30 mg IVP Q6 PRN PRN Reason: Pain, severe (8-10) Last Admin: 03/22/18 23:19 Dose: 30 mg Lorazepam (Ativan) 1 mg IVP Q6H PRN; Protocol PRN Reason: Seizure activity Multivitamins/Minerals (Therapeutic-M Tab) 1 tab PO 0800 [facility] Last Admin: 03/23/18 11:10 Dose: 1 tab Ondansetron HCl (Zofran Inj) 4 mg IVP Q6H PRN PRN Reason: Nausea/Vomiting Pantoprazole Sodium (Protonix Ec Tab) 40 mg PO 0600 [facility] Last Admin: 03/23/18 05:32 Dose: 40 mg Thiamine HCl (Vitamin B1 Tab) 50 mg PO DAILY [facility] Last Admin: 03/23/18 12:10 Dose: 50 mg - Labs Labs: 03/23/18 07:20 03/23/18 07:20 PT 11.8 SECONDS (9.4-12.5) 03/21/18 18:00 INR 1.03 03/21/18 18:00 APTT 33.9 Seconds (25.1-36.5) 03/21/18 18:00 - Constitutional Appears: Non-toxic, No Acute Distress - Head Exam Head Exam: ATRAUMATIC, NORMOCEPHALIC - Eye Exam Eye Exam: EOMI, Normal appearance, PERRL - ENT Exam ENT Exam: Mucous Membranes Moist - Neck Exam Neck Exam: Full ROM, Normal Inspection - Respiratory Exam Respiratory Exam: Clear to Ausculation Bilateral, NORMAL BREATHING PATTERN. absent: Accessory Muscle Use, Rales, Rhonchi, Wheezes, Respiratory Distress - Cardiovascular Exam Cardiovascular Exam: REGULAR RHYTHM, RRR, +S1, +S2. absent: Gallop, Rubs, Murmur - GI/Abdominal Exam GI & Abdominal Exam: Soft, Normal Bowel Sounds. absent: Guarding, Tenderness - Extremities Exam Extremities Exam: Full ROM, Normal Inspection - Back Exam Back Exam: NORMAL INSPECTION - Neurological Exam Neurological Exam: Alert, Awake, Oriented x3 - Psychiatric Exam Psychiatric exam: Normal Affect, Normal Mood - Skin Skin Exam: Dry, Intact, Warm Assessment and Plan - Assessment and Plan (Free Text) Assessment: 53 yo M with PMH of morbid obesity, HTN, DM2 (resolved s/p gastric bypass), GERD, cholelithiasis, BPH, and nephrolithiasis presented to ED with RUQ pain found to have findings concerning for acute cholecystitis and possible choledocholithiasis on RUQ US in ED. Per GI recs, patient is to be transferred to [facility] for advanced bariatric ERCP by Dr. Morse. Plan: 1. RUQ pain Likely 2/2 underlying cholecystitis vs choledocholithiasis MRCP completed showed bile duct dilatation, ERCP needed Per GI, patient will need to transfer to another hospital to find the services needed Patient to be transferred to [facility] for advanced bariatric ERCP with Dr. Lito Morse has already accepted patient Patient is to be transferred to med/surg Spoke to hospitalist accepting patient at [facility], only bed availability is pending at this point 2. GERD Continue daily protonix 3. Hx DM2 Pt states DM2 resolved after weight loss and gastric bypass Monitor blood sugar closely ISS if needed 4. Hx BPH s/p cystoscopy with stent placement Currently does not complain of urinary retention, dysuria, or frequency Flomax as needed DVT/GI PPX: SCD (lovenox held for pre-op), protonix Full Code HHD Monitor on med/surg until transfer to [facility] med/surg Case and plan reviewed and discussed with my attending Dr. Toby Trejo DO Resident PGY-1 Pager: [phone] <Indu Luis - Last Filed: 03/25/18 15:32> Objective - Vital Signs/Intake and Output Vital Signs (last 24 hours): Temp Pulse Resp BP Pulse Ox 97.4 F L 55 L 18 122/72 98 03/24/18 08:01 03/24/18 08:01 03/24/18 08:01 03/24/18 08:01 03/24/18 08:01 - Labs Labs: 03/24/18 07:00 03/24/18 07:00 PT 11.8 SECONDS (9.4-12.5) 03/21/18 18:00 INR 1.03 03/21/18 18:00 APTT 33.9 Seconds (25.1-36.5) 03/21/18 18:00 Attending/Attestation - Attestation I have personally seen and examined this patient.: Yes I have fully participated in the care of the patient.: Yes I have reviewed all pertinent clinical information, including history, physical exam and plan: Yes Notes (Text): 03/25/18 15:27 Attending note; Patient seen and examined with the resident. Patient is alert and awake. right upper quadrant pain is improving. Patient denies any fevers, chills. Currently on clear liquid diet. Denies any urinary symptoms. Patient is a 53 -year-old male with PMH of morbid obesity, HTN, DM2, s/p gastric bypass, GERD, cholelithiasis, BPH, and nephrolithiasis, ureteral stent placement, prostate surgery is admitted with [facility]. 1. Cholelithiasis ;Abdominal ultrasound is positive for gallstones. No signs of acute cholecystitis. 2.Patient with elevated LFTs. Rule out choledocholithiasis. MRCP showed dilated CBD but no stone. MRCP reviewed with GI and surgery. Case discussed with [facility] public affairs director Dr. Morse in detail. Patient is currently accepted to [facility] for ERCP since the patient needs double balloon assisted ERCP to properly access Y limb and relieve obstruction. 3. History of BPH and prostate surgery; currently no urinary symptoms. Continue Flomax. 4. sever left hydronephrosis. CAT scan reviewed. chronic. We will monitor with bladder scan. Currently no urinary symptoms. urology evaluation requested. 5. History of gastric bypass surgery. The diagnosis, follow-up plan discussed with patient in detail.
--- NOTE | 2018-03-23 16:34 | CP.PCM.DIS ---
Provider - Provider Date of Admission: 03/21/18 22:39 Attending physician: Indu Luis MD Consults: GI: Maximo, Surgery: Abraham Time Spent in preparation of Discharge (in minutes): 45 Diagnosis - Discharge Diagnosis (1) Total bilirubin, elevated Status: Acute (2) Dilated bile duct Status: Acute (3) Cholelithiasis Status: Acute (4) Elevated LFTs Status: Acute Hospital Course - Lab Results Lab Results: Most Recent Lab Values WBC 6.2 10^3/uL (4.5-11.0) 03/23/18 07:20 RBC 4.08 10^6/uL (3.5-6.1) 03/23/18 07:20 Hgb 12.5 g/dL (14.0-18.0) L 03/23/18 07:20 Hct 39.7 % (42.0-52.0) L 03/23/18 07:20 MCV 97.3 fl (80.0-105.0) 03/23/18 07:20 MCH 30.6 pg (25.0-35.0) 03/23/18 07:20 MCHC 31.5 g/dl (31.0-37.0) 03/23/18 07:20 RDW 16.7 % (11.5-14.5) H 03/23/18 07:20 Plt Count 228 10^3/uL (120.0-450.0) 03/23/18 07:20 MPV 8.9 fl (7.0-11.0) 03/23/18 07:20 Gran % 73.1 % (50.0-68.0) H 03/23/18 07:20 Lymph % (Auto) 12.7 % (22.0-35.0) L 03/23/18 07:20 Becker % (Auto) 11.2 % (1.0-6.0) H 03/23/18 07:20 Eos % (Auto) 2.7 % (1.5-5.0) 03/23/18 07:20 Baso % (Auto) 0.3 % (0.0-3.0) 03/23/18 07:20 Gran # 4.55 (1.4-6.5) 03/23/18 07:20 Lymph # (Auto) 0.8 (1.2-3.4) L 03/23/18 07:20 Becker # (Auto) 0.7 (0.1-0.6) H 03/23/18 07:20 Eos # (Auto) 0.2 (0.0-0.7) 03/23/18 07:20 Baso # (Auto) 0.02 K/mm3 (0.0-2.0) 03/23/18 07:20 PT 11.8 SECONDS (9.4-12.5) 03/21/18 18:00 INR 1.03 03/21/18 18:00 APTT 33.9 Seconds (25.1-36.5) 03/21/18 18:00 Sodium 140 mmol/L (132-148) 03/23/18 07:20 Potassium 4.3 mmol/L (3.6-5.0) 03/23/18 07:20 Chloride 107 mmol/L (98-107) 03/23/18 07:20 Carbon Dioxide 29 mmol/L (21-33) 03/23/18 07:20 Anion Gap 9 (10-20) L 03/23/18 07:20 BUN 10 mg/dL (7-21) 03/23/18 07:20 Creatinine 1.0 mg/dl (0.8-1.5) 03/23/18 07:20 Est GFR ( Amer) > 60 03/23/18 07:20 Est GFR (Non-Af Amer) > 60 03/23/18 07:20 Random Glucose 102 mg/dL (70-110) 03/23/18 07:20 Calcium 9.1 mg/dL (8.4-10.5) 03/23/18 07:20 Phosphorus 3.5 mg/dL (2.5-4.5) 03/23/18 07:20 Magnesium 1.8 mg/dL (1.7-2.2) 03/23/18 07:20 Total Bilirubin 2.1 mg/dL (0.2-1.3) H 03/23/18 07:20 AST 64 U/L (17-59) H D 03/23/18 07:20 ALT 90 U/L (7-56) H 03/23/18 07:20 Alkaline Phosphatase 292 U/L (38-126) H D 03/23/18 07:20 Troponin I < 0.01 ng/mL 03/21/18 18:00 Total Protein 7.2 g/dL (5.8-8.3) 03/23/18 07:20 Albumin 3.3 g/dL (3.0-4.8) 03/23/18 07:20 Globulin 3.9 gm/dL 03/23/18 07:20 Albumin/Globulin Ratio 0.9 (1.1-1.8) L 03/23/18 07:20 Lipase 147 U/L (23-300) 03/21/18 18:00 Alcohol, Quantitative < 10 mg/dL (0-10) 03/22/18 12:00 Hepatitis A IgM Ab Negative (NEGATIVE) 03/22/18 14:13 Hep Bs Antigen Negative (NEGATIVE) 03/22/18 14:13 Hep B Core IgM Ab Negative (NEGATIVE) 03/22/18 14:13 Hepatitis C Antibody Negative (NEGATIVE) 03/22/18 14:13 Blood Type O POSITIVE 03/22/18 08:00 Blood Type Confirm O POSITIVE 03/22/18 09:15 Antibody Screen Negative 03/22/18 08:00 Crossmatch See Detail 03/22/18 08:00 BBK History Checked No verified bt 03/22/18 08:00 - Hospital Course Hospital Course: Aelx Trejo DO, PGY-1 Hospitalist Discharge Summary for Dr. Luis Mr. Herrera is a 53 year old male with PMH Of morbid obesity, HTN, DM2 (resolved s/p gastric bypass), GERD, cholelithiasis, BPH, and nephrolithiasis who presented to ED with worsening RUQ pain concerning for cholecystitis vs choledocholithiasis. In ED, Tbili, Alk phos, and AST/ALT were also noted to be elevated, c/w cholecystitis vs choledocholithiasis. RUQ US findings confirmed the need for further imaging. Surgery and GI were consulted. MRCP was obtained and had findings concerning for bile duct dilatation. GI subsequently recommended transferring patient to [facility] under the auspice of a specialist in bariatric ERCP procedures, given patient hx of gastric bypass surgery. Patient was subsequently accepted by Dr. Morse at [facility] and was transferred to this facility for further management. Situation was explained in detail to the patient and all questions were answered prior to his leaving. Discharge Exam - Head Exam Head Exam: ATRAUMATIC, NORMOCEPHALIC - Eye Exam Eye Exam: EOMI, Normal appearance, PERRL - ENT Exam ENT Exam: Mucous Membranes Moist - Neck Exam Neck exam: Full Rom, Normal Inspection - Respiratory Exam Respiratory Exam: Clear to PA & Lateral, NORMAL BREATHING PATTERN, UNREMARKABLE. absent: Accessory Muscle Use, Rales, Rhonchi, Wheezes, Stridor - Cardiovascular Exam Cardiovascular Exam: REGULAR RHYTHM, RRR, +S1, +S2. absent: Diastolic murmur, Gallop, Rubs, Systolic Murmur - GI/Abdominal Exam GI & Abdominal Exam: Normal Bowel Sounds, Tenderness (mild tenderness to palpation RUQ). absent: Guarding, Organomegaly, Rebound, Rigid - Extremities Exam Extremities exam: normal inspection - Back Exam Back exam: CVA tenderness (L) - Neurological Exam Neurological exam: Alert, Oriented x3 - Psychiatric Exam Psychiatric exam: Normal Affect, Normal Mood - Skin Skin Exam: Dry, Intact, Warm Discharge Plan - Follow Up Plan Condition: STABLE Disposition: OTHER INSTITUTION Instructions: Gallstones, Gallstones (DC) Additional Instructions: [facility] transfer center [phone]
[2018-03-24] MEDS: Lactated Ringer's 1,000 ML IV SCH ×2 (02:59→10:14)
[2018-03-24] MEDS: Pantoprazole 40 mg EC Tab PO SCH (05:51)
[2018-03-24 07:42] LABS: BASO # 0.02 K/mm3 (0.0-2.0); BASO % 0.4 % (0.0-3.0); EOS # 0.2 (0.0-0.7); EOS % 3.2 % (1.5-5.0); GRAN # 3.6 (1.4-6.5); HEMOGLOBIN 12.8 g/dL (14.0-18.0); LYMPH # 0.8 (1.2-3.4); LYMPH % 15.4 % (22.0-35.0); MEAN CELL VOLUME 97.3 fl (80.0-105.0); MEAN CORPUSCULAR HEMOGLOBIN 30.9 pg (25.0-35.0); MEAN CORPUSCULAR HGB CONC 31.8 g/dl (31.0-37.0); MEAN PLATELET VOLUME 8.8 fl (7.0-11.0); MONO # 0.5 (0.1-0.6); RBC 4.14 10^6/uL (3.5-6.1); RED CELL DISTRIBUTION WIDTH 16.5 % (11.5-14.5)
[2018-03-24 07:57] LABS: ALB/GLOB RATIO 0.9 (1.1-1.8); ALBUMIN 3.3 g/dL (3.0-4.8); ALT/SGPT 115 U/L (7-56); AST/SGOT 151 U/L (17-59); BLOOD UREA NITROGEN 8 mg/dL (7-21); GFR NON-AFRICAN AMERICAN > 60
[2018-03-24 08:02] VITALS: BP 122/72; PULSE 55; RESP 18; TEMP 97.4; O2SAT 98
[2018-03-24] MEDS ORDERED: cefTRIAXone 1 gm 1 GM/100 ML BAG IVPB SCH (10:00)
[2018-03-24] MEDS: Multivitamin With Minerals Tab PO SCH (10:11)
--- NOTE | 2018-03-24 11:55 | CP.PCM.PN ---
Subjective - Date & Time of Evaluation Date of Evaluation: 03/24/18 Time of Evaluation: 08:15 - Subjective Subjective: PGY-4 GI Fellow Prog Note Pt lying in bed when seen this AM. Denied abd pain. Eager for transfer. 5 point ROS negative other than stated above Objective - Vital Signs/Intake and Output Vital Signs (last 24 hours): Temp Pulse Resp BP Pulse Ox 97.4 F L 55 L 18 122/72 98 03/24/18 08:01 03/24/18 08:01 03/24/18 08:01 03/24/18 08:01 03/24/18 08:01 Intake and Output: 03/24/18 03/24/18 06:59 18:59 Intake Total 480 0 Output Total 10 1500 Balance 470 -1500 - Medications Medications: Current Medications Folic Acid (Folic Acid) 1 mg PO DAILY [facility] Last Admin: 03/24/18 10:11 Dose: 1 mg Lactated Ringer's (Lactated Ringer's) 1,000 mls @ 150 mls/hr IV .Q6H40M [facility] Last Admin: 03/24/18 10:14 Dose: 150 mls/hr Ceftriaxone Sodium (Rocephin 1 Gram Ivpb) 1 gm in 100 mls @ 100 mls/hr IVPB DAILY [facility]; Protocol Last Admin: 03/24/18 10:11 Dose: 100 mls/hr Ketorolac Tromethamine (Toradol) 30 mg IVP Q6 PRN PRN Reason: Pain, severe (8-10) Last Admin: 03/23/18 22:13 Dose: 30 mg Lorazepam (Ativan) 1 mg IVP Q6H PRN; Protocol PRN Reason: Seizure activity Multivitamins/Minerals (Therapeutic-M Tab) 1 tab PO 0800 [facility] Last Admin: 03/24/18 10:11 Dose: 1 tab Ondansetron HCl (Zofran Inj) 4 mg IVP Q6H PRN PRN Reason: Nausea/Vomiting Pantoprazole Sodium (Protonix Ec Tab) 40 mg PO 0600 [facility] Last Admin: 03/24/18 05:51 Dose: 40 mg Tamsulosin HCl (Flomax) 0.4 mg PO DAILY [facility] Last Admin: 03/24/18 10:11 Dose: 0.4 mg Thiamine HCl (Vitamin B1 Tab) 50 mg PO DAILY [facility] Last Admin: 03/24/18 10:11 Dose: 50 mg - Labs Labs: 03/24/18 07:00 03/24/18 07:00 PT 11.8 SECONDS (9.4-12.5) 03/21/18 18:00 INR 1.03 03/21/18 18:00 APTT 33.9 Seconds (25.1-36.5) 03/21/18 18:00 - Constitutional Appears: Non-toxic, No Acute Distress - Head Exam Head Exam: ATRAUMATIC, NORMAL INSPECTION - Eye Exam Eye Exam: EOMI. absent: Conjunctival injection, Scleral icterus - ENT Exam ENT Exam: Mucous Membranes Moist, Normal External Ear Exam. absent: Mucous Membranes Dry - Respiratory Exam Respiratory Exam: NORMAL BREATHING PATTERN. absent: Accessory Muscle Use, Respiratory Distress - GI/Abdominal Exam GI & Abdominal Exam: Distended (mildly though exam limited by body habitus), Soft, Normal Bowel Sounds. absent: Bruit, Firm, Guarding, Rigid, Tenderness, Mass, Organomegaly, Pulsatile Mass Assessment and Plan - Assessment and Plan (Free Text) Assessment: 53 yo Male with obesity, s/p gastric bypass in 2000, HTN, EtOH abuse presenting with abdominal pain and abnormal liver tests. # Abd Pain: Improved, but likely due to choledocholithiasis given dilated CBD and persistently elevated liver tests (MRCP can miss distal CBD stones). Gen Surg consulted. Lipase wnl at 147. # Abnormal liver tests: Suspect multifactorial due to EtOH abuse and choledocholithiasis. # EtOH Abuse: 6 pack beer nightly. Last drink night prior to admission. No h/o withdrawal. # GERD: On omeprazole 40 mg as OP. # CRC Screening: Average risk patient; never had CSPY prior. Plan: - Plan to transfer patient to [facility] for advanced bariatric ERCP by Dr. Morse. Spoke with transfer center again this AM, accepted pt, just awaiting bed availability. - Monitor CBC, CMP - Gen Surg Following - CIWA protocol and Vit supp - Encourage EtOH cessation - Cont PPI - OP CSPY for CRC screening - Clear Liq Diet Pt discussed with Dr. Marsh; see attestation for further recs/changes.
--- NOTE | 2018-03-24 12:17 | CT ---
Date of service: 03/24/2018 PROCEDURE: CT Abdomen and Pelvis with and without intravenous contrast HISTORY: CT urogram/ delayed images for abd and pelvis COMPARISON: None. TECHNIQUE: Axial images of the abdomen were obtained in the pre contrast, portal venous and delayed phases of enhancement. Coronal and sagittal reformats were generated. Contrast dose: 150 cc of Omni 350 Radiation dose: Total exam DLP = 4536.59 mGy-cm. This CT exam was performed using one or more of the following dose reduction techniques: Automated exposure control, adjustment of the mA and/or kV according to patient size, and/or use of iterative reconstruction technique. FINDINGS: LOWER THORAX: Unremarkable. LIVER: Unremarkable. No gross lesion or ductal dilatation. GALLBLADDER AND BILE DUCTS: Multiple gallstones in the neck of the gallbladder PANCREAS: Unremarkable. No gross lesion or ductal dilatation. SPLEEN: Unremarkable. ADRENALS: Unremarkable. No mass. 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 There is severe left-sided hydronephrosis and hydroureter. The ureter is dilated and tortuous. This is most likely chronic. Excretion of contrast into the collecting system can be seen on the delayed images. There is no significant parenchymal atrophy. VASCULATURE: Unremarkable. No aortic aneurysm. No aortic atherosclerotic calcification or mural plaque present. BOWEL: Unremarkable. No obstruction. No gross mural thickening. APPENDIX: Normal appendix. PERITONEUM: Unremarkable. No free fluid. No free air. LYMPH NODES: Unremarkable. No enlarged lymph nodes. BLADDER: Unremarkable. REPRODUCTIVE: Unremarkable. BONES: No acute fracture. OTHER FINDINGS: None. 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 There is severe left-sided hydronephrosis and hydroureter.
--- NOTE | 2018-03-24 17:27 | CP.PCM.DIS ---
<Alex Trejo - Last Filed: 03/24/18 17:30> Provider - Provider Date of Admission: 03/21/18 22:39 Attending physician: Indu Luis MD Consults: Surgery: OSCAR Rosario: Maximo Time Spent in preparation of Discharge (in minutes): 35 Diagnosis - Discharge Diagnosis (1) Cholelithiasis Status: Acute (2) Dilated bile duct Status: Acute (3) Elevated LFTs Status: Acute (4) Total bilirubin, elevated Status: Acute Hospital Course - Lab Results Lab Results: Most Recent Lab Values WBC 5.0 10^3/uL (4.5-11.0) 03/24/18 07:00 RBC 4.14 10^6/uL (3.5-6.1) 03/24/18 07:00 Hgb 12.8 g/dL (14.0-18.0) L 03/24/18 07:00 Hct 40.3 % (42.0-52.0) L 03/24/18 07:00 MCV 97.3 fl (80.0-105.0) 03/24/18 07:00 MCH 30.9 pg (25.0-35.0) 03/24/18 07:00 MCHC 31.8 g/dl (31.0-37.0) 03/24/18 07:00 RDW 16.5 % (11.5-14.5) H 03/24/18 07:00 Plt Count 235 10^3/uL (120.0-450.0) 03/24/18 07:00 MPV 8.8 fl (7.0-11.0) 03/24/18 07:00 Gran % 72.0 % (50.0-68.0) H 03/24/18 07:00 Lymph % (Auto) 15.4 % (22.0-35.0) L 03/24/18 07:00 Frio % (Auto) 9.0 % (1.0-6.0) H 03/24/18 07:00 Eos % (Auto) 3.2 % (1.5-5.0) 03/24/18 07:00 Baso % (Auto) 0.4 % (0.0-3.0) 03/24/18 07:00 Gran # 3.60 (1.4-6.5) 03/24/18 07:00 Lymph # (Auto) 0.8 (1.2-3.4) L 03/24/18 07:00 Frio # (Auto) 0.5 (0.1-0.6) 03/24/18 07:00 Eos # (Auto) 0.2 (0.0-0.7) 03/24/18 07:00 Baso # (Auto) 0.02 K/mm3 (0.0-2.0) 03/24/18 07:00 PT 11.8 SECONDS (9.4-12.5) 03/21/18 18:00 INR 1.03 03/21/18 18:00 APTT 33.9 Seconds (25.1-36.5) 03/21/18 18:00 Sodium 140 mmol/L (132-148) 03/24/18 07:00 Potassium 4.2 mmol/L (3.6-5.0) 03/24/18 07:00 Chloride 105 mmol/L (98-107) 03/24/18 07:00 Carbon Dioxide 30 mmol/L (21-33) 03/24/18 07:00 Anion Gap 9 (10-20) L 03/24/18 07:00 BUN 8 mg/dL (7-21) 03/24/18 07:00 Creatinine 0.9 mg/dl (0.8-1.5) 03/24/18 07:00 Est GFR ( Amer) > 60 03/24/18 07:00 Est GFR (Non-Af Amer) > 60 03/24/18 07:00 Random Glucose 98 mg/dL (70-110) 03/24/18 07:00 Calcium 9.0 mg/dL (8.4-10.5) 03/24/18 07:00 Phosphorus 3.5 mg/dL (2.5-4.5) 03/23/18 07:20 Magnesium 1.8 mg/dL (1.7-2.2) 03/23/18 07:20 Total Bilirubin 1.9 mg/dL (0.2-1.3) H 03/24/18 07:00 AST 151 U/L (17-59) H D 03/24/18 07:00 ALT 115 U/L (7-56) H 03/24/18 07:00 Alkaline Phosphatase 515 U/L (38-126) H D 03/24/18 07:00 Troponin I < 0.01 ng/mL 03/21/18 18:00 Total Protein 7.1 g/dL (5.8-8.3) 03/24/18 07:00 Albumin 3.3 g/dL (3.0-4.8) 03/24/18 07:00 Globulin 3.8 gm/dL 03/24/18 07:00 Albumin/Globulin Ratio 0.9 (1.1-1.8) L 03/24/18 07:00 Lipase 147 U/L (23-300) 03/21/18 18:00 Alcohol, Quantitative < 10 mg/dL (0-10) 03/22/18 12:00 Hepatitis A IgM Ab Negative (NEGATIVE) 03/22/18 14:13 Hep Bs Antigen Negative (NEGATIVE) 03/22/18 14:13 Hep B Core IgM Ab Negative (NEGATIVE) 03/22/18 14:13 Hepatitis C Antibody Negative (NEGATIVE) 03/22/18 14:13 Blood Type O POSITIVE 03/22/18 08:00 Blood Type Confirm O POSITIVE 03/22/18 09:15 Antibody Screen Negative 03/22/18 08:00 Crossmatch See Detail 03/22/18 08:00 BBK History Checked No verified bt 03/22/18 08:00 - Hospital Course Hospital Course: Alex Trejo DO, PGY-1 Hospitalist Discharge Summary for Dr. Luis Mr. Herrera is a 53 year old male with PMH Of morbid obesity, HTN, DM2 (resolved s/p gastric bypass), GERD, cholelithiasis, BPH, and nephrolithiasis who presented to ED with worsening RUQ pain concerning for cholecystitis vs choledocholithiasis. In ED, Tbili, Alk phos, and AST/ALT were also noted to be elevated, c/w cholecystitis vs choledocholithiasis. RUQ US findings confirmed the need for further imaging. Surgery and GI were consulted. MRCP was obtained and had findings concerning for bile duct dilatation. During further evaluation and review of prior records, it was noted that patient had been in [facility] two days prior with similar complaints of abdominal pain. At the time, CTAP was performed and he was found to have severe L hydronephrosis. He was recommended to be admitted at that time but declined further treatment and work up which included cramer catheter placement. Patient then presented two days later with worsening RUQ pain. He had a bladder scan which showed post-void residual of approximately 200 cc. Case was discussed with urology who recommended cramer placement but patient refused again. It was recommended to him again that he follow up with urology at the next facility. The admitting hospitalist at [facility] was notified of this situation. Per GI recs, Mr. Herrera was transferred to [facility] under the auspice of a specialist in bariatric ERCP procedures, given patient hx of gastric bypass surgery. Patient was subsequently accepted by Dr. Morse at [facility] and was transferred to this facility for further management. Situation was explained in detail to the patient and all questions were answered prior to his leaving. Discharge Exam - Head Exam Head Exam: ATRAUMATIC, NORMAL INSPECTION - Eye Exam Eye Exam: EOMI, Normal appearance, PERRL - ENT Exam ENT Exam: Mucous Membranes Moist - Neck Exam Neck exam: Full Rom, Normal Inspection - Respiratory Exam Respiratory Exam: Clear to PA & Lateral, NORMAL BREATHING PATTERN, UNREMARKABLE. absent: Accessory Muscle Use, Rales, Rhonchi, Wheezes, Stridor - Cardiovascular Exam Cardiovascular Exam: REGULAR RHYTHM, RRR, +S1, +S2. absent: Diastolic murmur, Gallop, Rubs, Systolic Murmur - GI/Abdominal Exam GI & Abdominal Exam: Normal Bowel Sounds, Tenderness (mild tenderness to palpation RUQ) - Extremities Exam Extremities exam: full ROM, normal inspection - Neurological Exam Neurological exam: Alert, Oriented x3 - Psychiatric Exam Psychiatric exam: Normal Affect, Normal Mood - Skin Skin Exam: Dry, Intact, Warm Discharge Plan - Discharge Medications Prescriptions: cefTRIAXone 1 gm [Rocephin 1 gram IVPB] 1 gm IVPB DAILY #7 bag Lactated Ringer's 1,000 ml IV CONT #1 jarvis - Follow Up Plan Condition: STABLE Disposition: Trans to Other Acute Care Hosp Instructions: Gallstones, Gallstones (DC) Additional Instructions: For the severe hydronephrosis and hydroureter, Follow up with your urologist, Dr Kamlesh Ulrich, outpatient for lasix nuclear renal scan to assess kidney function. Referrals: Salinas Zarate MD [Staff Provider] - <Indu Luis - Last Filed: 03/25/18 15:41> Provider - Provider Date of Admission: 03/21/18 22:39 Attending physician: Indu Luis MD Hospital Course - Lab Results Lab Results: Most Recent Lab Values WBC 5.0 10^3/uL (4.5-11.0) 03/24/18 07:00 RBC 4.14 10^6/uL (3.5-6.1) 03/24/18 07:00 Hgb 12.8 g/dL (14.0-18.0) L 03/24/18 07:00 Hct 40.3 % (42.0-52.0) L 03/24/18 07:00 MCV 97.3 fl (80.0-105.0) 03/24/18 07:00 MCH 30.9 pg (25.0-35.0) 03/24/18 07:00 MCHC 31.8 g/dl (31.0-37.0) 03/24/18 07:00 RDW 16.5 % (11.5-14.5) H 03/24/18 07:00 Plt Count 235 10^3/uL (120.0-450.0) 03/24/18 07:00 MPV 8.8 fl (7.0-11.0) 03/24/18 07:00 Gran % 72.0 % (50.0-68.0) H 03/24/18 07:00 Lymph % (Auto) 15.4 % (22.0-35.0) L 03/24/18 07:00 Frio % (Auto) 9.0 % (1.0-6.0) H 03/24/18 07:00 Eos % (Auto) 3.2 % (1.5-5.0) 03/24/18 07:00 Baso % (Auto) 0.4 % (0.0-3.0) 03/24/18 07:00 Gran # 3.60 (1.4-6.5) 03/24/18 07:00 Lymph # (Auto) 0.8 (1.2-3.4) L 03/24/18 07:00 Frio # (Auto) 0.5 (0.1-0.6) 03/24/18 07:00 Eos # (Auto) 0.2 (0.0-0.7) 03/24/18 07:00 Baso # (Auto) 0.02 K/mm3 (0.0-2.0) 03/24/18 07:00 PT 11.8 SECONDS (9.4-12.5) 03/21/18 18:00 INR 1.03 03/21/18 18:00 APTT 33.9 Seconds (25.1-36.5) 03/21/18 18:00 Sodium 140 mmol/L (132-148) 03/24/18 07:00 Potassium 4.2 mmol/L (3.6-5.0) 03/24/18 07:00 Chloride 105 mmol/L (98-107) 03/24/18 07:00 Carbon Dioxide 30 mmol/L (21-33) 03/24/18 07:00 Anion Gap 9 (10-20) L 03/24/18 07:00 BUN 8 mg/dL (7-21) 03/24/18 07:00 Creatinine 0.9 mg/dl (0.8-1.5) 03/24/18 07:00 Est GFR ( Amer) > 60 03/24/18 07:00 Est GFR (Non-Af Amer) > 60 03/24/18 07:00 Random Glucose 98 mg/dL (70-110) 03/24/18 07:00 Calcium 9.0 mg/dL (8.4-10.5) 03/24/18 07:00 Phosphorus 3.5 mg/dL (2.5-4.5) 03/23/18 07:20 Magnesium 1.8 mg/dL (1.7-2.2) 03/23/18 07:20 Total Bilirubin 1.9 mg/dL (0.2-1.3) H 03/24/18 07:00 AST 151 U/L (17-59) H D 03/24/18 07:00 ALT 115 U/L (7-56) H 03/24/18 07:00 Alkaline Phosphatase 515 U/L (38-126) H D 03/24/18 07:00 Troponin I < 0.01 ng/mL 03/21/18 18:00 Total Protein 7.1 g/dL (5.8-8.3) 03/24/18 07:00 Albumin 3.3 g/dL (3.0-4.8) 03/24/18 07:00 Globulin 3.8 gm/dL 03/24/18 07:00 Albumin/Globulin Ratio 0.9 (1.1-1.8) L 03/24/18 07:00 Lipase 147 U/L (23-300) 03/21/18 18:00 Alcohol, Quantitative < 10 mg/dL (0-10) 03/22/18 12:00 Hepatitis A IgM Ab Negative (NEGATIVE) 03/22/18 14:13 Hep Bs Antigen Negative (NEGATIVE) 03/22/18 14:13 Hep B Core IgM Ab Negative (NEGATIVE) 03/22/18 14:13 Hepatitis C Antibody Negative (NEGATIVE) 03/22/18 14:13 Blood Type O POSITIVE 03/22/18 08:00 Blood Type Confirm O POSITIVE 03/22/18 09:15 Antibody Screen Negative 03/22/18 08:00 Crossmatch See Detail 03/22/18 08:00 BBK History Checked No verified bt 03/22/18 08:00 Attending/Attestation - Attestation I have personally seen and examined this patient.: Yes I have fully participated in the care of the patient.: Yes I have reviewed all pertinent clinical information, including history, physical exam and plan: Yes Notes (Text): 03/25/18 15:33 Attending note; Patient seen and examined with the resident. Urologist by the bedside. Patient is alert and awake. right upper quadrant pain is improving. Patient denies any fevers, chills. Currently on clear liquid diet. Denies any urinary symptoms. No significant post fall with residual after bladder scan. Patient is a 53 -year-old male with PMH of morbid obesity, HTN, DM2, s/p gastric bypass, GERD, cholelithiasis, BPH, and nephrolithiasis, ureteral stent placement, prostate surgery is admitted with RUQ pain. 1. Cholelithiasis ;Abdominal ultrasound is positive for gallstones. No signs of acute cholecystitis. 2.Patient with elevated LFTs. Rule out choledocholithiasis. MRCP showed dilated CBD but no stone. MRCP reviewed with GI and surgery. Case discussed with [facility] mask layout designer Dr. Morse in detail. Patient is currently accepted to [facility] for ERCP since the patient needs double balloon assisted ERCP to properly access Y limb and relieve obstruction. pending bed assignment. Still with elevated LFTs. Hepatitis profile is negative. 3. History of BPH and prostate surgery; currently no urinary symptoms. Continue Flomax. 4. sever left hydronephrosis. 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 Renal scan ordered. Patient refused further workup inpatient. Patient had multiple procedures done by his primary urologist in july 2017. urology evaluation appreciated. 5. History of gastric bypass surgery. The diagnosis, follow-up plan discussed with patient in detail. patient was transferred to [facility].
--- NOTE | 2018-03-24 22:33 | CON ---
DATE: 03/24/2018 Mr. Herrera is a 53-year-old male who presented to [facility] Emergency Room with complaints of right upper quadrant pain and found to have choledocholithiasis. Additionally, the patient was found to have severe bilateral ureteral hydronephrosis from the renal pelvis all the way down to the bladder of unclear etiology, this despite a normal PVR. I requested that a CT scan be performed with contrast (CT urogram) to help identify both structure and function. The CT scan demonstrated bilateral hydroureteronephrosis without cause and was significant for cortical thinning on the left side. Given these findings, I recommended to the patient that he have a nuclear medicine scan done, in addition to a retrograde pyelogram to try to identify causes of bilateral hydroureteronephrosis given my impression that he may have an ureteral stricture distally on both sides. The patient refused the exam as he is currently suffering from the choledocholithiasis and would like to have it done at another time. I implored the patient to consider doing the test while in-house, and I have made my recommendation. Salinas Zarate M.D.
== END 2018-03-24 18:30 | disposition short-term general hospital (02) | DRG 445 ==
LOC: ED 17:00 → ERH 22:39 → 5RSO 03-22 00:38 → 5RNO 03-22 08:08
PROVIDERS: ADMIT Hospitalist; ATTEND Internal Medicine
DX: K80.20 Calculus of gallbladder without cholecystitis without obstruction (principal); Z68.42 Body mass index [BMI] 45.0-49.9, adult; N13.30 Unspecified hydronephrosis; K83.8 Other specified diseases of biliary tract; E66.01 Morbid (severe) obesity due to excess calories; E11.9 Type 2 diabetes mellitus without complications; N40.0 Benign prostatic hyperplasia without lower urinary tract symptoms; I10 Essential (primary) hypertension; K21.9 Gastro-esophageal reflux disease without esophagitis; F10.10 Alcohol abuse, uncomplicated; K29.70 Gastritis, unspecified, without bleeding; Z98.84 Bariatric surgery status; Z87.442 Personal history of urinary calculi